=== PATIENT | male | born 1970 | race African-American/Black ===

== ENCOUNTER 2016-02-23 18:24 | Inpatient (IN) | payer OTHER ==
[2016-02-23] VITALS (10 sets, daily range): BP systolic 138–198; BP diastolic 73–110
[~2016-02-23] VITALS: Ht 175.2 cm; Wt 102.3 kg
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
--- NOTE | ~2016-02-23 | ST ---
[place], [place] EXERCISE STRESS TEST REPORT NAME: [facility]ES [id number] UNIT #: [id number] ROOM: 512 DOCTOR: AZEEM CLINTON MD BIRTHDATE: [birth year] DOS: 02/24/2016 EXERCISE MYOCARDIAL PERFUSION STRESS TEST REASON FOR TEST: Referred for evaluation of atypical chest pain and hypertension. PROCEDURE: The patient walked 8 minutes 35 seconds on a full Latrell protocol and achieved a maximum heart rate of 151 which represented 86% of his maximum predicted heart rate at a workload of 12.5 mets. He stopped for dyspnea and fatigue. He did not have any burning chest discomfort. His resting electrocardiogram showed left ventricular hypertrophy. No further changes occurred with exercise. One minute prior to completion of exercise protocol, the patient was given radionuclide intravenously. The patient's resting blood pressure 146/100, mikhail to 192/100. IMPRESSION: 1. Good exercise capacity without chest pain or diagnostic electrocardiographic changes. 2. Hypertensive blood pressure response to exercise. 3. Radionuclide injected. Please see the separate imaging report for further details of the patient's stress test results. AZEEM CLINTON MD CM:STRESS:EXERCISE STRESS TEST REPORT [id number] AZEEM CLINTON MD
[~2016-02-23 18:24] MED LIST: 'PARAFON FORTE500 M1 PO; ASPIR-LOW81 MG PO; ASPIRIN81 M1 PO; AUGMENTIN 875 M1 TAB PO; CIPRO500 MG PO; CORTISPORIN 1%7.5 M1 OP; DAYPRO600 M1 PO; FLEXERIL10 MG PO; HYDROCODONE BIT1 T11 PO; IBU800 M1 PO; LABETALOL HCL100 MG PO; LABETALOL100 MG PO; LEVEMIR10 ML SC; LISINOPRIL10 MG PO; METFORMIN HCL500 MG PO; METFORMIN500 MG PO; MOBIC7.5 MG PO; MOTRIN800 MG PO; NAPROSYN500 MG PO; NEURONTIN300 MG PO; PEN-VEE K500 MG PO; PRAVACHOL40 MG PO; TRAMADOL HCL50 MG PO; VICODIN ES 7501 TAB PO; VOLTAREN50 M1 PO; ZESTRIL,PRINIVI20 MG PO
[2016-02-23] MEDS ORDERED: LOPRESSOR25 MG PO (19:07)
[2016-02-23 19:58] LABS: BASO % 0.5 % (0.0-1.0); EOS % 0.3 % (1.0-4.0); HEMATOCRIT 41.6 % (42.0-52.0); HEMOGLOBIN 13.8 g/dl (14.0-18.0); LYMPH # 3.2 10*3/uL (1.3-4.4); LYMPH % 41.3 % (27.0-41.0); MEAN CORPUSCULAR HGB 30.2 pg (27.0-31.0); MEAN CORPUSCULAR HGB CONC 33.2 g/dl (33.0-37.0); MEAN PLATELET VOLUME 10.3 fl (9.6-12.3); MONO # 0.5 10*3/uL (0.1-1.0); MONO % 6.4 % (3.0-9.0); NEUT # 3.9 10*3/uL (2.3-7.9); NEUT % 51.2 % (47.0-73.0); PLATELET COUNT AUTOMATED 311 10*3/uL (130-400); RED BLOOD COUNT 4.57 10*6/uL (4.50-5.90); RED CELL DISTRI WIDTH 12.1 % (0-14.5); WHITE BLOOD COUNT 7.6 10*3/uL (4.8-10.8)
[2016-02-23 20:12] LABS: INTERNATIONAL NORM RATIO 0.9 (2.0-3.5)
[2016-02-23 20:14] LABS: ALBUMIN 3.9 gm/dl (3.1-4.5); ALKALINE PHOSPHATASE 71 U/L (45-117); BILIRUBIN, TOTAL 0.5 mg/dl (0.2-1.0); BUN 14 mg/dl (7-24); C-REACTIVE PROTEIN 0.42 MG/DL (0-0.3); CARBON DIOXIDE 27 mmol/L (21-32); CHLORIDE 98 mmol/L (98-107); CKMB 0.9 ng/ml (0.5-3.6); EST GLOM FILT AFRICAN AMERICAN > 60 ml/min; GLUCOSE 331 mg/dL (65-99); MAGNESIUM 2.1 mg/dL (1.5-2.1); POTASSIUM 4.1 mmol/L (3.5-5.1); SGOT/AST 8 IU/L (3-35); SGPT/ALT 27 U/L (12-78); SODIUM 134 mmol/L (136-145); TOTAL PROTEIN 8.2 gm/dL (6.4-8.2)
[2016-02-24] VITALS: BP 148/88
[2016-02-24 00:51] LABS: CKMB 1.1 ng/ml (0.5-3.6)
[2016-02-24 04:00] VITALS: BP 154/82
[2016-02-24 06:40] LABS: CKMB 0.8 ng/ml (0.5-3.6)
[2016-02-24 06:43] LABS: BASO # 0.1 10*3/uL (0.0-0.1); BASO % 0.9 % (0.0-1.0); EOS # 0.1 10*3/uL (0.0-0.4); EOS % 1.1 % (1.0-4.0); HEMATOCRIT 39.7 % (42.0-52.0); HEMOGLOBIN 13.1 g/dl (14.0-18.0); LYMPH # 2.8 10*3/uL (1.3-4.4); LYMPH % 51.5 % (27.0-41.0); MEAN CELL VOLUME 92.3 fl (80.0-94.0); MEAN CORPUSCULAR HGB 30.5 pg (27.0-31.0); MEAN PLATELET VOLUME 10.5 fl (9.6-12.3); MONO # 0.4 10*3/uL (0.1-1.0); MONO % 8.1 % (3.0-9.0); NEUT # 2.1 10*3/uL (2.3-7.9); NEUT % 38.2 % (47.0-73.0); PLATELET COUNT AUTOMATED 259 10*3/uL (130-400); RED CELL DISTRI WIDTH 12.2 % (0-14.5); WHITE BLOOD COUNT 5.4 10*3/uL (4.8-10.8)
[2016-02-24 07:01] LABS: HEMOGLOBIN A1c 10.5 % (4.8-5.6)
[2016-02-24 07:08] LABS: ALBUMIN 3.1 gm/dl (3.1-4.5); ALKALINE PHOSPHATASE 57 U/L (45-117); BILIRUBIN, TOTAL 0.5 mg/dl (0.2-1.0); BUN 13 mg/dl (7-24); CARBON DIOXIDE 28 mmol/L (21-32); CHLORIDE 100 mmol/L (98-107); EST GLOM FILT AFRICAN AMERICAN > 60 ml/min; GLUCOSE 129 mg/dL (65-99); POTASSIUM 3.4 mmol/L (3.5-5.1); SGOT/AST 10 IU/L (3-35); SGPT/ALT 23 U/L (12-78); SODIUM 139 mmol/L (136-145); TOTAL PROTEIN 6.8 gm/dL (6.4-8.2)
[2016-02-24 07:14] LABS: FREE T4 0.93 ng/dl (0.76-1.46); MAGNESIUM 2.3 mg/dL (1.5-2.1); THYROID STIM HORMONE (HS) 1.75 uIU/ml (0.358-4.75)
[2016-02-24 08:00] VITALS: BP 150/88
[2016-02-24 11:17] LABS: URINE AMPHETAMINES < 1000 (1000ng/ml); URINE BARBITURATES < 200 (200ng/ml); URINE COCAINE < 300 (300ng/ml)
[2016-02-24 12:00] VITALS: BP 156/86
[2016-02-24 12:36] LABS: CKMB 1.2 ng/ml (0.5-3.6)
[2016-02-24 16:00] VITALS: BP 157/90
[2016-02-24 20:00] VITALS: BP 165/90
[2016-02-25] VITALS: BP 140/94
[2016-02-25 02:35] VITALS: BP 150/102
[2016-02-25 02:49] LABS: BASO % 0.4 % (0.0-1.0); EOS % 0.4 % (1.0-4.0); HEMATOCRIT 40.3 % (42.0-52.0); HEMOGLOBIN 13.3 g/dl (14.0-18.0); LYMPH # 3.5 10*3/uL (1.3-4.4); LYMPH % 46.3 % (27.0-41.0); MEAN CELL VOLUME 92.6 fl (80.0-94.0); MEAN CORPUSCULAR HGB 30.6 pg (27.0-31.0); MEAN PLATELET VOLUME 9.9 fl (9.6-12.3); MONO # 0.5 10*3/uL (0.1-1.0); MONO % 7.1 % (3.0-9.0); NEUT # 3.5 10*3/uL (2.3-7.9); NEUT % 45.5 % (47.0-73.0); PLATELET COUNT AUTOMATED 276 10*3/uL (130-400); RED BLOOD COUNT 4.35 10*6/uL (4.50-5.90); RED CELL DISTRI WIDTH 12.2 % (0-14.5); WHITE BLOOD COUNT 7.6 10*3/uL (4.8-10.8)
[2016-02-25 03:02] LABS: BUN 13 mg/dl (7-24); CARBON DIOXIDE 28 mmol/L (21-32); CHLORIDE 101 mmol/L (98-107); EST GLOM FILT AFRICAN AMERICAN > 60 ml/min; GLUCOSE 232 mg/dL (65-99); SODIUM 138 mmol/L (136-145)
[2016-02-25 04:00] VITALS: BP 144/92
[2016-02-25 08:00] VITALS: BP 120/60
[2016-02-25 12:00] VITALS: BP 146/100
[2016-02-25] MEDS ORDERED: HUMALOG100 U/ML SC (13:57)
[2016-02-25] MEDS ORDERED: INSULIN SYRING1 EAC1 MC (13:57)
[2016-02-25] MEDS ORDERED: LOSARTAN POTASS50 M1 PO (13:57)
[2016-02-25] MEDS ORDERED: TEST STRIPS1 EACH MC (13:57)
[2016-02-25] MEDS ORDERED: PRAVASTATIN SOD40 MG PO (13:57)
[2016-02-25] MEDS ORDERED: [UNRECOGNIZED DRUG - SUPPLY] DEVI (13:57)
[2016-02-25 15:07] LABS: FOLIC ACID 21.08 ng/mL (>5.38)
[2016-02-25] MEDS ORDERED: COZAAR100 MG PO (15:46)
[2016-02-25 16:00] VITALS: BP 159/87
== END 2016-02-25 18:18 | disposition home or self-care (01) | DRG 305 ==
LOC: ED 18:24 → EDHOLD 20:39 → 5E 20:39
PROVIDERS: Emergency Medicine; Hospitalist; Internal Medicine; Internal Medicine Cardiovascular Disease
DX: I16.0 Hypertensive urgency (principal); E44.0 Moderate protein-calorie malnutrition; F17.200 Nicotine dependence, unspecified, uncomplicated; F12.10 Cannabis abuse, uncomplicated; F10.10 Alcohol abuse, uncomplicated; E10.65 Type 1 diabetes mellitus with hyperglycemia; E78.5 Hyperlipidemia, unspecified; I25.10 Atherosclerotic heart disease of native coronary artery without angina pectoris; Z68.33 Body mass index [BMI] 33.0-33.9, adult; Z83.3 Family history of diabetes mellitus; Z80.9 Family history of malignant neoplasm, unspecified; Z79.899 Other long term (current) drug therapy; Z87.828 Personal history of other (healed) physical injury and trauma; Z71.6 Tobacco abuse counseling; Z98.890 Other specified postprocedural states; Z91.14 Patient's other noncompliance with medication regimen

== ENCOUNTER → 2016-06-04 | Outpatient (CLI) | payer OTHER ==
[~2016-06-04] MED LIST changes: +COZAAR100 MG PO; +HUMALOG100 U/ML SC; +INSULIN SYRING1 EAC1 MC; +LOPRESSOR25 MG PO; +LOSARTAN POTASS50 M1 PO; +PRAVASTATIN SOD40 MG PO; +TEST STRIPS1 EACH MC; +[UNRECOGNIZED DRUG - SUPPLY] DEVI
[2016-06-04 11:09] LABS: HEMOGLOBIN A1c 9.6 % (4.8-5.6)
== END | disposition home or self-care (01) ==
LOC: LAB 10:34
PROVIDERS: Family Medicine
DX: E11.65 Type 2 diabetes mellitus with hyperglycemia (principal)

== ENCOUNTER 2016-06-07 14:28 | Emergency (ER) | payer OTHER ==
[~2016-06-07] VITALS: Wt 106.6 kg
[2016-06-07 14:35] VITALS: BP 162/92
[2016-06-08] MEDS ORDERED: NAPROSYN500 MG PO (19:48)
== END 2016-06-07 16:11 | disposition home or self-care (01) ==
LOC: ED 14:28
DX: M25.461 Effusion, right knee (principal); F17.200 Nicotine dependence, unspecified, uncomplicated; Z98.890 Other specified postprocedural states; Z79.899 Other long term (current) drug therapy

== ENCOUNTER → 2016-06-07 | Outpatient (CLI) | payer OTHER | END | disposition home or self-care (01) | LOC: RESCLI | DX: E11.65 Type 2 diabetes mellitus with hyperglycemia (principal); I10 Essential (primary) hypertension; M25.561 Pain in right knee; Z79.4 Long term (current) use of insulin; I25.10 Atherosclerotic heart disease of native coronary artery without angina pectoris ==

== ENCOUNTER 2016-06-08 19:07 | Emergency (ER) | payer OTHER ==
[~2016-06-08] VITALS: Ht 170.1 cm; Wt 106.6 kg
[2016-06-08 19:21] VITALS: BP 169/103
[2016-06-08] MEDS ORDERED: NAPROSYN500 MG PO (19:48)
== END 2016-06-08 20:12 | disposition home or self-care (01) ==
LOC: ED 19:07
DX: M25.561 Pain in right knee (principal); F12.10 Cannabis abuse, uncomplicated; Z79.4 Long term (current) use of insulin

== ENCOUNTER 2017-06-29 17:00 | Emergency (ER) | payer OTHER ==
[~2017-06-29] VITALS: Ht 170.1 cm; Wt 99.8 kg
[2017-06-29] MEDS ORDERED: NORCO 5-325 TA1 EACH PO (19:30)
[2017-06-29 20:34] VITALS: BP 169/89
== END 2017-06-29 21:15 | disposition home or self-care (01) ==
LOC: ED 17:00
DX: S52.571A Other intraarticular fracture of lower end of right radius, initial encounter for closed fracture (principal); S30.0XXA Contusion of lower back and pelvis, initial encounter; S90.01XA Contusion of right ankle, initial encounter; F12.10 Cannabis abuse, uncomplicated; Z79.4 Long term (current) use of insulin; Z79.899 Other long term (current) drug therapy; W13.2XXA Fall from, out of or through roof, initial encounter; Y93.89 Activity, other specified; Y92.89 Other specified places as the place of occurrence of the external cause; Y99.9 Unspecified external cause status

== ENCOUNTER 2017-07-25 15:44 | Emergency (ER) | payer OTHER ==
[~2017-07-25] VITALS: Ht 172.7 cm; Wt 94.8 kg
[~2017-07-25 15:44] MED LIST changes: +NORCO 5-325 TA1 EACH PO
[2017-07-25 16:22] LABS: BASO % 0.6 % (0.0-1.0); EOS # 0.1 10*3/uL (0.0-0.4); EOS % 0.8 % (1.0-4.0); HEMATOCRIT 36.9 % (42.0-52.0); HEMOGLOBIN 12.3 g/dl (14.0-18.0); LYMPH # 1.8 10*3/uL (1.3-4.4); LYMPH % 25.3 % (27.0-41.0); MEAN CELL VOLUME 90.2 fl (80.0-94.0); MEAN CORPUSCULAR HGB 30.1 pg (27.0-31.0); MEAN CORPUSCULAR HGB CONC 33.3 g/dl (33.0-37.0); MEAN PLATELET VOLUME 9.8 fl (9.6-12.3); MONO # 0.5 10*3/uL (0.1-1.0); MONO % 6.6 % (3.0-9.0); NEUT # 4.7 10*3/uL (2.3-7.9); NEUT % 66.1 % (47.0-73.0); PLATELET COUNT AUTOMATED 294 10*3/uL (130-400); RED BLOOD COUNT 4.09 10*6/uL (4.50-5.90); RED CELL DISTRI WIDTH 11.7 % (0-14.5); WHITE BLOOD COUNT 7.2 10*3/uL (4.8-10.8)
[2017-07-25 16:36] LABS: ACT PARTIAL THROMBO TIME 19.6 SECONDS (20.8-31.5)
[2017-07-25 16:39] LABS: ALBUMIN 3.6 gm/dl (3.1-4.5); ALKALINE PHOSPHATASE 92 U/L (45-117); BUN 12 mg/dl (7-24); CHLORIDE 101 mmol/L (98-107); CREATININE 0.97 mg/dL (0.70-1.30); POTASSIUM 4.2 mmol/L (3.5-5.1); SGOT/AST 11 IU/L (3-35); SGPT/ALT 26 U/L (12-78); SODIUM 139 mmol/L (136-145); TOTAL PROTEIN 7.8 gm/dL (6.4-8.2)
[2017-07-25 16:45] LABS: TROPONIN I < 0.015 ng/ml (<0.045)
[2017-07-25] MEDS ORDERED: METFORMIN850 MG PO (16:49)
[2017-07-25] MEDS ORDERED: METHOCARBAMOL500 M1 PO (16:51)
[2017-07-25] MEDS ORDERED: LIPITOR40 MG PO (16:51)
[2017-07-25] MEDS ORDERED: NEURONTIN300 MG PO (16:51)
[2017-07-25] MEDS ORDERED: LISINOPRIL40 MG PO (16:52)
[2017-07-25] MEDS ORDERED: HYDROCHLOROTH12.5 M2 PO (16:53)
[2017-07-25] MEDS ORDERED: ZOFRAN4 MG PO (16:54)
[2017-07-25] MEDS ORDERED: ASPIRIN ADULT L81 M1 PO (16:55)
[2017-07-25] MEDS ORDERED: LABETALOL HCL100 MG PO (16:55)
[2017-07-25] MEDS ORDERED: BASAG SOL SQ (16:56)
[2017-07-25] MEDS ORDERED: [UNRECOGNIZED DRUG - OTHER] PO (16:57)
[2017-07-25 17:29] VITALS: BP 117/78
== END 2017-07-25 18:06 | disposition home or self-care (01) ==
LOC: ED 15:44
PROVIDERS: Emergency Medicine
DX: R55 Syncope and collapse (principal); M25.531 Pain in right wrist; R10.84 Generalized abdominal pain; F17.200 Nicotine dependence, unspecified, uncomplicated; E11.9 Type 2 diabetes mellitus without complications; I10 Essential (primary) hypertension; F12.10 Cannabis abuse, uncomplicated; Z79.899 Other long term (current) drug therapy; Z79.82 Long term (current) use of aspirin

== ENCOUNTER 2017-08-17 11:53 | Inpatient (IN) | payer OTHER ==
[~2017-08-17] VITALS: Ht 172.7 cm; Wt 95.4 kg
[2017-08-17] VITALS (7 sets, daily range): BP systolic 144–166; BP diastolic 88–109
[~2017-08-17 11:53] MED LIST changes: +ASPIRIN ADULT L81 M1 PO; +BASAG SOL SQ; +HYDROCHLOROTH12.5 M2 PO; +LIPITOR40 MG PO; +LISINOPRIL40 MG PO; +METFORMIN850 MG PO; +METHOCARBAMOL500 M1 PO; +ZOFRAN4 MG PO; +[UNRECOGNIZED DRUG - OTHER] PO
[2017-08-17 12:47] LABS: BASO % 0.6 % (0.0-1.0); EOS % 0.5 % (1.0-4.0); HEMATOCRIT 39.7 % (42.0-52.0); HEMOGLOBIN 13.4 g/dl (14.0-18.0); LYMPH # 2.6 10*3/uL (1.3-4.4); LYMPH % 41.2 % (27.0-41.0); MEAN CORPUSCULAR HGB CONC 33.8 g/dl (33.0-37.0); MONO # 0.5 10*3/uL (0.1-1.0); MONO % 7.5 % (3.0-9.0); NEUT # 3.1 10*3/uL (2.3-7.9); PLATELET COUNT AUTOMATED 300 10*3/uL (130-400); RED BLOOD COUNT 4.46 10*6/uL (4.50-5.90); RED CELL DISTRI WIDTH 11.9 % (0-14.5); WHITE BLOOD COUNT 6.3 10*3/uL (4.8-10.8)
[2017-08-17 12:57] LABS: ACT PARTIAL THROMBO TIME 22.3 SECONDS (20.8-31.5)
[2017-08-17 13:04] LABS: ALBUMIN 4.1 gm/dl (3.1-4.5); ALKALINE PHOSPHATASE 83 U/L (45-117); BUN 14 mg/dl (7-24); CHLORIDE 96 mmol/L (98-107); CREATININE 1.03 mg/dL (0.70-1.30); POTASSIUM 3.9 mmol/L (3.5-5.1); SGOT/AST 10 IU/L (3-35); SGPT/ALT 19 U/L (12-78); SODIUM 132 mmol/L (136-145); TOTAL PROTEIN 8.4 gm/dL (6.4-8.2)
[2017-08-17 13:07] LABS: TROPONIN I < 0.015 ng/ml (<0.045)
[2017-08-17 23:06] LABS: BILIRUBIN NEGATIVE (NEGATIVE); BLOOD 1+ (NEGATIVE); CLARITY CLEAR (CLEAR); COLOR YELLOW (YELLOW); GLUCOSE NEGATIVE (NEGATIVE); KETONE NEGATIVE (NEGATIVE); LEUKO ESTERASE NEGATIVE (NEGATIVE); NITRITE NEGATIVE (NEGATIVE); PH 5.5 (5.0-9.0); SPECIFIC GRAVITY <= 1.005 (1.005-1.030); UROBILINOGEN 0.2 E.U./dl (0.2-1.0)
[2017-08-17 23:13] LABS: WBC 0-2 wbc/hpf (0-5)
[2017-08-18 00:11] VITALS: BP 130/82
[2017-08-18 06:27] LABS: BASO % 0.6 % (0.0-1.0); EOS # 0.1 10*3/uL (0.0-0.4); EOS % 0.7 % (1.0-4.0); HEMATOCRIT 37.4 % (42.0-52.0); HEMOGLOBIN 12.6 g/dl (14.0-18.0); LYMPH # 2.9 10*3/uL (1.3-4.4); LYMPH % 40.5 % (27.0-41.0); MEAN CELL VOLUME 89.9 fl (80.0-94.0); MEAN CORPUSCULAR HGB 30.3 pg (27.0-31.0); MEAN CORPUSCULAR HGB CONC 33.7 g/dl (33.0-37.0); MEAN PLATELET VOLUME 9.3 fl (9.6-12.3); MONO # 0.5 10*3/uL (0.1-1.0); MONO % 7.4 % (3.0-9.0); NEUT # 3.7 10*3/uL (2.3-7.9); NEUT % 50.5 % (47.0-73.0); PLATELET COUNT AUTOMATED 284 10*3/uL (130-400); RED BLOOD COUNT 4.16 10*6/uL (4.50-5.90); RED CELL DISTRI WIDTH 11.9 % (0-14.5); WHITE BLOOD COUNT 7.2 10*3/uL (4.8-10.8)
[2017-08-18 07:01] LABS: ALBUMIN 3.9 gm/dl (3.1-4.5); ALKALINE PHOSPHATASE 77 U/L (45-117); BUN 13 mg/dl (7-24); CHLORIDE 99 mmol/L (98-107); CREATININE 1.08 mg/dL (0.70-1.30); FREE T4 0.93 ng/dl (0.76-1.46); PHOSPHOROUS 3.7 mg/dL (2.5-4.9); SGOT/AST 8 IU/L (3-35); SGPT/ALT 22 U/L (12-78); SODIUM 138 mmol/L (136-145); TOTAL PROTEIN 8.1 gm/dL (6.4-8.2)
[2017-08-18 08:00] VITALS: BP 142/94
[2017-08-18 12:00] VITALS: BP 139/87
[2017-08-18] MEDS ORDERED: NITROSTAT0.4 MG SL (12:30)
== END 2017-08-18 13:06 | disposition home or self-care (01) | DRG 392 ==
LOC: ED 11:53 → EDHOLD 13:38 → 4E 13:38
PROVIDERS: Emergency Medicine; Internal Medicine
DX: R10.13 Epigastric pain (principal); E11.65 Type 2 diabetes mellitus with hyperglycemia; E87.8 Other disorders of electrolyte and fluid balance, not elsewhere classified; E87.1 Hypo-osmolality and hyponatremia; D64.9 Anemia, unspecified; E55.9 Vitamin D deficiency, unspecified; E78.5 Hyperlipidemia, unspecified; E66.9 Obesity, unspecified; E78.00 Pure hypercholesterolemia, unspecified; R31.29 Other microscopic hematuria; F12.10 Cannabis abuse, uncomplicated; I10 Essential (primary) hypertension; Z79.4 Long term (current) use of insulin; Z72.0 Tobacco use; Z79.82 Long term (current) use of aspirin; Z79.84 Long term (current) use of oral hypoglycemic drugs; Z79.899 Other long term (current) drug therapy; Z83.3 Family history of diabetes mellitus; Z80.9 Family history of malignant neoplasm, unspecified; Z87.81 Personal history of (healed) traumatic fracture; Z68.31 Body mass index [BMI] 31.0-31.9, adult

== ENCOUNTER 2018-04-19 14:56 | Emergency (ER) | payer OTHER ==
[~2018-04-19] VITALS: Wt 108.9 kg
[~2018-04-19 14:56] MED LIST changes: +KEFLEX500 M1 PO; +NITROSTAT0.4 MG SL
[2018-04-19 15:34] VITALS: BP 178/104
[2018-04-19] MEDS ORDERED: MEDROL DOSEPAK4 MG PO (17:21)
[2018-04-19] MEDS ORDERED: NAPROSYN500 MG PO (17:21)
[2018-04-19] MEDS ORDERED: ROBAXIN500 M1 PO (17:21)
[2018-05-29] MEDS ORDERED: NORVASC2.5 MG PO (10:02)
[2018-05-30] MEDS ORDERED: AMLODIPINE BESY10 MG PO (12:05)
[2018-05-30] MEDS ORDERED: TEST STRIPS1 EACH MC (12:05)
[2018-05-30] MEDS ORDERED: ACCU-CHEK FAST1 EACH MC (12:05)
[2018-05-30] MEDS ORDERED: Humalog SQ (12:05)
[2018-05-30] MEDS ORDERED: PEN NEEDLE1 EAC5 MC (12:05)
[2018-05-30] MEDS ORDERED: LABETALOL HCL200 MG PO (12:05)
== END 2018-04-19 17:41 | disposition home or self-care (01) ==
LOC: ED 14:56
DX: S39.012A Strain of muscle, fascia and tendon of lower back, initial encounter (principal); S30.0XXA Contusion of lower back and pelvis, initial encounter; F17.200 Nicotine dependence, unspecified, uncomplicated; Z79.899 Other long term (current) drug therapy; Z79.2 Long term (current) use of antibiotics; Z79.82 Long term (current) use of aspirin; Z79.4 Long term (current) use of insulin; W10.9XXA Fall (on) (from) unspecified stairs and steps, initial encounter; Y93.89 Activity, other specified; Y92.89 Other specified places as the place of occurrence of the external cause; Y99.8 Other external cause status

== ENCOUNTER 2018-05-22 17:24 | Emergency (ER) | payer OTHER ==
[~2018-05-22] VITALS: Ht 170.1 cm; Wt 95.3 kg
--- NOTE | ~2018-05-22 | EKG ---
[place], [place] ELECTROCARDIOGRAM REPORT NAME: SAUNDRA GONZALES UNIT #: [id number] ROOM: DOCTOR: EPIPHANY DRAFT REPORT BIRTHDATE: [birth year] [facility] Test Date: 2018-05-22 Test Time: 17:56:47 Pat Name: SAUNDRA GONZALES Department: Room: Gender: Senior Net C Developer: Ysabel Briceno : 1970 Requested By: DENNIS GUADARRAMA Order Number: [id number] Reading MD: Simi Sethi MD Measurements Intervals [place] Rate: 90 P: 49 MA: 147 QRS: 31 QRSD: 82 T: 0 QT: 352 QTc: 431 Interpretive Statements Sinus rhythm Consider left ventricular hypertrophy ST elev, probable normal early repol pattern Baseline wander in lead(s) V5 Electronically Signed On 05-26-2018 13:18:16 PDT by Simi Sethi MD CM:EKGRPT:ELECTROCARDIOGRAM REPORT [id number] DENNIS OLVERA DRAFT REPORT DENNIS GUADARRAMA MD
[~2018-05-22 17:24] MED LIST changes: +MEDROL DOSEPAK4 MG PO; +ROBAXIN500 M1 PO
[2018-05-22 18:19] LABS: BASO % 0.5 % (0.0-1.0); EOS % 0.5 % (1.0-4.0); HEMATOCRIT 34.2 % (42.0-52.0); HEMOGLOBIN 11.6 g/dl (14.0-18.0); LYMPH # 2.6 10*3/uL (1.3-4.4); LYMPH % 33.2 % (27.0-41.0); MEAN CELL VOLUME 91.2 fl (80.0-94.0); MEAN CORPUSCULAR HGB 30.9 pg (27.0-31.0); MEAN CORPUSCULAR HGB CONC 33.9 g/dl (33.0-37.0); MEAN PLATELET VOLUME 10.1 fl (9.6-12.3); MONO # 0.5 10*3/uL (0.1-1.0); MONO % 6.1 % (3.0-9.0); NEUT # 4.6 10*3/uL (2.3-7.9); NEUT % 59.4 % (47.0-73.0); PLATELET COUNT AUTOMATED 245 10*3/uL (130-400); RED BLOOD COUNT 3.75 10*6/uL (4.50-5.90); RED CELL DISTRI WIDTH 11.7 % (0-14.5); WHITE BLOOD COUNT 7.7 10*3/uL (4.8-10.8)
[2018-05-22 18:34] VITALS: BP 150/94
[2018-05-22 18:59] LABS: ALBUMIN 3.3 gm/dl (3.1-4.5); ALKALINE PHOSPHATASE 74 U/L (45-117); BUN 14 mg/dl (7-24); CHLORIDE 102 mmol/L (98-107); CREATININE 1.18 mg/dL (0.70-1.30); POTASSIUM 4.4 mmol/L (3.5-5.1); SGOT/AST 15 IU/L (3-35); SGPT/ALT 26 U/L (12-78); SODIUM 137 mmol/L (136-145); TOTAL PROTEIN 7.1 gm/dL (6.4-8.2)
[2018-05-22 19:01] LABS: ETHYL ALCOHOL < 3.0 mg/dl (<3); TROPONIN I < 0.015 ng/ml (<0.045)
[2018-05-22] MEDS ORDERED: NAPROSYN500 MG PO (19:15)
[2018-05-22] MEDS ORDERED: CYCLOBENZAPRINE10 MG PO (19:15)
[2018-05-22 19:24] LABS: ACT PARTIAL THROMBO TIME 21.4 SECONDS (20.8-31.5); INTERNATIONAL NORM RATIO 0.9 (2.0-3.5)
[2018-05-29] MEDS ORDERED: NORVASC2.5 MG PO (10:02)
[2018-05-30] MEDS ORDERED: ACCU-CHEK FAST1 EACH MC (12:05)
[2018-05-30] MEDS ORDERED: LABETALOL HCL200 MG PO (12:05)
[2018-05-30] MEDS ORDERED: AMLODIPINE BESY10 MG PO (12:05)
[2018-05-30] MEDS ORDERED: TEST STRIPS1 EACH MC (12:05)
[2018-05-30] MEDS ORDERED: Humalog SQ (12:05)
[2018-05-30] MEDS ORDERED: PEN NEEDLE1 EAC5 MC (12:05)
== END 2018-05-22 19:31 | disposition home or self-care (01) ==
LOC: ED 17:24
PROVIDERS: Emergency Medicine
DX: M25.511 Pain in right shoulder (principal); M54.6 Pain in thoracic spine; R20.0 Anesthesia of skin; F17.200 Nicotine dependence, unspecified, uncomplicated; E11.9 Type 2 diabetes mellitus without complications; E78.5 Hyperlipidemia, unspecified; I10 Essential (primary) hypertension; F12.90 Cannabis use, unspecified, uncomplicated; E66.9 Obesity, unspecified; Z68.34 Body mass index [BMI] 34.0-34.9, adult; Z79.82 Long term (current) use of aspirin; Z79.899 Other long term (current) drug therapy; Z79.4 Long term (current) use of insulin

== ENCOUNTER 2018-08-11 14:40 | Inpatient (IN) | payer OTHER ==
[~2018-08-11] VITALS: Ht 172.7 cm
[2018-08-11] VITALS (7 sets, daily range): BP systolic 150–180; BP diastolic 85–122
--- NOTE | ~2018-08-11 | EKG ---
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
--- NOTE | ~2018-08-11 | EKG ---
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 Specialist: JAKE : 1970 Requested By: DENNIS GUADARRAMA Order Number: [id number] Reading MD: Yahir Silva MD Measurements Intervals [place] Rate: 90 P: 54 MS: 148 QRS: 30 QRSD: 86 T: 29 QT: 362 QTc: 443 Interpretive Statements Sinus rhythm Probable left atrial enlargement ST elev, probable normal early repol pattern Compared to ECG 05/29/2018 05:11:08 Left ventricular hypertrophy no longer present T-wave abnormality no longer present ST (T wave) deviation still present Electronically Signed On 08-14-2018 8:11:28 PDT by Yahir Silva MD CM:EKGRPT:ELECTROCARDIOGRAM REPORT 02 0811 DENNIS OLVERA DRAFT REPORT DENNIS GUADARRAMA MD
--- NOTE | ~2018-08-11 | EKG ---
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: : 1970 Requested By: DENNIS GUADARRAMA Order Number: [id number] Reading MD: Yahir Silva MD Measurements Intervals [place] Rate: 79 P: 37 TN: 154 QRS: 32 QRSD: 85 T: 29 QT: 367 QTc: 421 Interpretive Statements Sinus rhythm Probable left atrial enlargement Probable left ventricular hypertrophy ST elevation suggests acute pericarditis Baseline wander in lead(s) II,III,aVF Compared to ECG 05/29/2018 05:11:08 T-wave abnormality no longer present ST (T wave) deviation still present Electronically Signed On 08-14-2018 8:10:21 PDT by Yahir Silva MD CM:EKGRPT:ELECTROCARDIOGRAM REPORT [id number] DENNIS OLVERA DRAFT REPORT DENNIS GUADARRAMA MD
[~2018-08-11 14:40] MED LIST changes: +ACCU-CHEK FAST1 EACH MC; +AMLODIPINE BESY10 MG PO; +CYCLOBENZAPRINE10 MG PO; +Humalog SQ; +LABETALOL HCL200 MG PO; +NORVASC2.5 MG PO; +PEN NEEDLE1 EAC5 MC
[2018-08-11 15:12] LABS: BASO % 0.2 % (0.0-1.0); EOS % 0.5 % (1.0-4.0); HEMATOCRIT 36.1 % (42.0-52.0); HEMOGLOBIN 12.2 g/dl (14.0-18.0); LYMPH # 1.6 10*3/uL (1.3-4.4); LYMPH % 27.3 % (27.0-41.0); MEAN CELL VOLUME 92.3 fl (80.0-94.0); MEAN CORPUSCULAR HGB 31.2 pg (27.0-31.0); MEAN CORPUSCULAR HGB CONC 33.8 g/dl (33.0-37.0); MEAN PLATELET VOLUME 9.5 fl (9.6-12.3); MONO # 0.4 10*3/uL (0.1-1.0); MONO % 6.6 % (3.0-9.0); NEUT # 3.9 10*3/uL (2.3-7.9); NEUT % 65.2 % (47.0-73.0); PLATELET COUNT AUTOMATED 276 10*3/uL (130-400); RED BLOOD COUNT 3.91 10*6/uL (4.50-5.90); RED CELL DISTRI WIDTH 12.3 % (0-14.5); WHITE BLOOD COUNT 5.9 10*3/uL (4.8-10.8)
--- NOTE | 2018-08-11 15:15 | NUR ---
[facility] [employer] REMOVED CUFFS FROM PATIENT AND STATES THEY TALKED WITH [facility] AND [facility] WANTS CALLED WHEN PT IS DISCHARGED. PT COOPERATIVE AT THIS TIME.
[2018-08-11 15:27] LABS: ACT PARTIAL THROMBO TIME 26.5 SECONDS (20.0-32.1)
[2018-08-11 15:40] LABS: ALBUMIN 3.5 gm/dl (3.1-4.5); ALKALINE PHOSPHATASE 70 U/L (45-117); BUN 13 mg/dl (7-24); CHLORIDE 104 mmol/L (98-107); CREATININE 1.07 mg/dL (0.70-1.30); POTASSIUM 3.8 mmol/L (3.5-5.1); SGOT/AST 24 IU/L (3-35); SGPT/ALT 37 U/L (12-78); SODIUM 139 mmol/L (136-145); TOTAL PROTEIN 7.4 gm/dL (6.4-8.2)
[2018-08-11 15:49] LABS: TROPONIN I < 0.015 ng/ml (<0.045)
[2018-08-11 17:44] LABS: URINE AMPHETAMINES < 1000 (1000ng/ml); URINE BARBITURATES < 200 (200ng/ml); URINE BENZODIAZEPINES < 200 (200ng/ml); URINE CANNABINOIDS (THC) > 50 (50ng/ml); URINE COCAINE < 300 (300ng/ml); URINE METHADONE < 300 (300ng/ml); URINE OPIATES < 300 (300ng/ml); URINE PHENCYCLIDINE < 25 (25ng/ml)
[2018-08-11] MEDS ORDERED: NEURONTIN300 MG PO (18:50)
--- NOTE | 2018-08-11 18:50 | NUR ---
A 47, admitted to 5E, under the services of JOSE MANUEL Tran DO with a diagnosis of CHEST PAIN. Chief complaint is CHEST PAIN. Patient arrived via ambulance from ER. Monitor applied. Initial assessment completed. Vital signs taken and recorded. JOSE MANUEL TRAN DO notified of admission to the unit. Orders received. See assessment for past medical history, medications and allergies. Patient and/or family oriented to unit. [facility] visitation policy reviewed. Clothing/patient valuable form completed. ALBERTO WINSTON
[2018-08-11] MEDS ORDERED: BASAG SOL SC (18:51)
--- NOTE | 2018-08-11 18:55 | NUR ---
NOTIFIED AYO ENCISO OF PT'S BP. NO NO ORDERS GIVEN AT THIS TIME.
--- NOTE | 2018-08-11 19:21 | NUR ---
DR WILBURN NOTIFIED OF UPDATED MED REC.
--- NOTE | 2018-08-11 19:43 | NUR ---
PATIENT MEDICATED WITH SLOWLY WITH HYDRALAZINE 5 MG IV PER PRN ORDER FOR BP OF 180/122. SEE EMAR. REINFORCED USE OF CALL LIGHT.
--- NOTE | 2018-08-11 20:00 | NUR ---
BLOOD PRESSURE RECHECK 172/85. DR WILBURN NOTIFIED.
--- NOTE | 2018-08-11 20:50 | NUR ---
PATIENT C/O CHEST DISCOMFORT. MEDICATED WITH TYLENOL FOR C/O CHEST PAIN. SEE EMAR. RATED PAIN A 8/10 WITH 10 BEING THE WORST.
--- NOTE | 2018-08-11 23:21 | NUR ---
DR. WILBURN NOTIFIED OF MANUAL BP OF 176/98.
--- NOTE | 2018-08-11 23:35 | NUR ---
PATIENT MEDICATED SLOWLY WITH HYDRALAZINE 5 MG IC PER PRN ORDER FOR BP OF 176/98 MANUAL. SEE EMAR. REINFORCED USE OF CALL LIGHT.
[2018-08-12] VITALS (7 sets, daily range): BP systolic 128–184; BP diastolic 72–100
--- NOTE | 2018-08-12 02:00 | NUR ---
RECHECK ON BP 128/72.
--- NOTE | 2018-08-12 03:27 | NUR ---
24 HR chart check completed.
[2018-08-12 06:14] LABS: BASO % 0.4 % (0.0-1.0); EOS % 0.4 % (1.0-4.0); HEMATOCRIT 37.8 % (42.0-52.0); HEMOGLOBIN 12.5 g/dl (14.0-18.0); LYMPH # 2.3 10*3/uL (1.3-4.4); LYMPH % 45.8 % (27.0-41.0); MEAN CELL VOLUME 93.8 fl (80.0-94.0); MEAN CORPUSCULAR HGB CONC 33.1 g/dl (33.0-37.0); MEAN PLATELET VOLUME 10.3 fl (9.6-12.3); MONO # 0.5 10*3/uL (0.1-1.0); MONO % 9.3 % (3.0-9.0); NEUT # 2.2 10*3/uL (2.3-7.9); NEUT % 43.9 % (47.0-73.0); PLATELET COUNT AUTOMATED 289 10*3/uL (130-400); RED BLOOD COUNT 4.03 10*6/uL (4.50-5.90); RED CELL DISTRI WIDTH 12.4 % (0-14.5)
[2018-08-12 06:32] LABS: ALBUMIN 3.4 gm/dl (3.1-4.5); ALKALINE PHOSPHATASE 65 U/L (45-117); BUN 14 mg/dl (7-24); CHLORIDE 103 mmol/L (98-107); CREATININE 0.98 mg/dL (0.70-1.30); HDL CHOLESTEROL 49 mg/dl (40-60); PHOSPHOROUS 3.7 mg/dL (2.5-4.9); POTASSIUM 3.3 mmol/L (3.5-5.1); SGOT/AST 24 IU/L (3-35); SGPT/ALT 34 U/L (12-78); SODIUM 137 mmol/L (136-145); TOTAL PROTEIN 6.8 gm/dL (6.4-8.2); TRIGLYCERIDES 129 mg/dl (<150); VLDL CHOLESTEROL 26 mg/dL (6-40)
--- NOTE | 2018-08-12 06:34 | NUR ---
PATIENT MEDICATED WITH TYLENOL PER PRN ORDER AND PATIENT REQUEST FOR C/O CHEST PAIN. DOES NOT WANT NITRO- STATED IT DOES NOT WORK ANYWAY. DR WILBURN NOTIFIED AND DID NOT WANT ANY FURTHER TESTING DONE.
[2018-08-12 06:42] LABS: CHOLESTEROL 125 mg/dL (<200); FREE T4 0.86 ng/dl (0.76-1.46); LDL CHOLESTEROL 50 mg/dL (9-159)
[2018-08-12 07:01] LABS: ACT PARTIAL THROMBO TIME 23.7 SECONDS (20.0-32.1)
[2018-08-12 07:38] LABS: VITAMIN D, 25-HYDROXY 20.3 ng/mL (30-100)
--- NOTE | 2018-08-12 07:46 | NUR ---
24 HR chart check completed.
--- NOTE | 2018-08-12 09:30 | NUR ---
ATTEMPTED TO REACH CARDIOLOGY FOR CONSULT. MEAAGE LEFT WITH ANSWERING SERVICE. AWAITING RETURN CALL
--- NOTE | 2018-08-12 09:35 | NUR ---
RELAXING IN BED WATCHING TV AND EATING BREAKFAST. UPON ENTERING ROOM, PATIENT IMMEDIATELY STATES "MY CHEST HURTS." HR 102, BP 184/96. PULSE OX 97% RA.
--- NOTE | 2018-08-12 09:40 | NUR ---
DR VILLA CONTACTED TO VERIFY [facility] ORDER; 25 MG ORDERED X 2 BY [address] VILLA, ONLY 1 DOSE IS NEEDED. ALSO UPDATED REGARDING MANUAL BP 184/96. PER REVIEW OF PATIENT HX, PATIENT WAS HERE MAY 2018 AND ORDERED LABETOLOL BUT DENIES TAKING AT PRESENT. PER DR VILLA, ENTER MED ON MED REC AND SHE WILL ORDER
[2018-08-12] MEDS ORDERED: LABETALOL HYDR200 MG PO (09:42)
--- NOTE | 2018-08-12 12:15 | NUR ---
DR VILLA CONTACTED AND INFORMED OF BP 154/100 AFTER RECEIVING LABETOLOL [address] Reagan PEREZ SAW PATIENT AND INCREASED LABETOLOL TO 300 MG BID AND STRESS TEST PLANNED FOR TUESDAY. PER DR VILLA, BP OK WE DO NOT WANT TO DROP PRESSURE TOO QUICKLY. CONTINUE TO MONITOR
--- NOTE | 2018-08-12 12:30 | NUR ---
AMBULATING HALLWAY. NO DISTRESS NOTED.
--- NOTE | 2018-08-12 15:30 | NUR ---
LAYING IN BED WATCHING TV WITH NO ACUTE DISTRESS NOTED. RESPIRATIONS EASY. CALL LIGHT WITHIN REACH. NO VOICED COMPLAINTS
[2018-08-12] MEDS ORDERED: NORVASC10 MG PO (15:31)
--- NOTE | 2018-08-12 17:10 | NUR ---
DR VILLA CONTACTED AND INFORMED BP 164/100. PATIENT WAS SLEEPING PRIOR TO BP. NO C/O CHEST PAIN
--- NOTE | 2018-08-12 18:00 | NUR ---
AMBULATING HALLWAY WITH NO DISTRESS NOTED. NO VOICED COMPLAINTS
[2018-08-13] VITALS: BP 154/93
--- NOTE | 2018-08-13 04:30 | NUR ---
24 HR chart check completed.
[2018-08-13 08:00] VITALS: BP 180/92
--- NOTE | 2018-08-13 08:07 | NUR ---
24 HR chart check completed.
--- NOTE | 2018-08-13 09:00 | NUR ---
SITTING IN RECLINER, NO DISTRESS NOTED. ERSPIRATIONS EASY. LUNGS DIMINISHED, CLEAR. PULSE OX 99% RA. DENIES CHEST PAIN. BP 180/92. TEDS PRESENT AT BEDSIDE, ENCOURAGED TO PLACE AFTER SHOWER. CALL LIGHT WITHIN REACH. NO VOICED COMPLAINTS
[2018-08-13 12:00] VITALS: BP 158/100
[2018-08-13 12:30] VITALS: BP 170/98
--- NOTE | 2018-08-13 12:30 | NUR ---
ATTEMPTED TO REACH DR VILLA REGARDING BP 170/[address] PRATER ANSWERED AND TO RELAY INFO
--- NOTE | 2018-08-13 12:57 | NUR ---
C/O LEFT LOWER BACK PAIN RATING AN 8. MEDICATED WITH TYLENOL PER PRN ORDER. CALL LIGHT WITHIN REACH. WILL MONITOR FOR EFFECTIVENESS
--- NOTE | 2018-08-13 15:00 | NUR ---
RESTING IN RECLINER WATCHING TV. STATES RELIEF FROM EARLIER TYLENOL. CALL LIGHT WITHIN REACH. NO FURTHER VOICED COMPLAINTS
[2018-08-13 16:00] VITALS: BP 148/96
--- NOTE | 2018-08-13 16:30 | NUR ---
RESTING IN BED. RESPIRATIONS EASY. BP 148/96. DENIES CHEST PAIN. CALL LIGHT WITHIN REACH. NO VOICED COMPLAINTS
--- NOTE | 2018-08-13 17:00 | NUR ---
AMBULATING HALLWAY. NO DISTRESS NOTED. NO VOICED COMPLAINTS
[2018-08-13 20:00] VITALS: BP 158/90
--- NOTE | 2018-08-13 20:00 | NUR ---
AAOX3. AMBULATING IN HALLS. PT. BACK IN ROOM FOR ASSESSMENT. LUNGS CLEAR WITH NO COUGH NOTED. PT. STATES THAT HE HAS HAD SEVERAL BM'S & WANTS SOMETHING TO HELP HIM STOP. PT. HAS NOT HAD A BM FOR SEVERAL DAYS. INFORMED PATIENT THAT HE MIGHT WANT TO WAIT TO SEE IF HE CONTINUE TO GO. PT. VERBALIZES UNDERSTANDING. WILL CONTINUE TO MONITOR. CALL LIGHT WITHIN REACH.
--- NOTE | 2018-08-13 23:00 | NUR ---
PT LAYING IN BED AT THIS TIME. PT STATES THAT HE IS HAVING DIFFICULTY SLEEPING, WOULD LIKE SLEEPING PILL BEFORE MIDNIGHT (NPO). PT DENIES CP AT THIS TIME, CALL LIGHT IN REACH.
--- NOTE | 2018-08-13 23:20 | NUR ---
MEDICATED WITH RESTORIL FOR C/O INSOMNIA.
[2018-08-14] VITALS: BP 130/80
--- NOTE | 2018-08-14 01:23 | NUR ---
24 HR chart check completed.
[2018-08-14 08:00] VITALS: BP 160/98
--- NOTE | 2018-08-14 10:40 | NUR ---
PT OUT OF ROOM FOR STRESS TEST. WILL REVISIT.
--- NOTE | 2018-08-14 11:30 | NUR ---
INFORMED CONSENT FOR CARDIOLYTE STRESS TEST WITH DR. GARCIA. RESTING EKG NSR, HR 76, BP 132/92. COMPLETED 3:31 OF STANDARD AVIS PROTOCOL COMPLETING :31 STAGE II, 2.5MPH/12% GRADE. TREADMILL DECREASED AT THAT TIME TO 1.5 MPH/0% GRADE D/T C/O FATIGUE. LEXISCAN 0.4MG INJECTED AT 12:25. CONTINUED TO WALK FOR 2 MINUTES POST INJECTION. PEAK HEART RATE OF 114 ACHIEVED WHICH IS 66% PREDICTED MAXIMUM AND A PEAK BP OF 166/104. NO ARRHYTMIAS OR ST CHANGES NOTED. HAS A LOW EXERCISE TOLERANCE. LAST RECOVERY HR 114, BP 140/86. WAITING NUCLEAR SCANNING IN STABLE CONDITION.
[2018-08-14] MEDS ORDERED: VITAMIN D-32000 UNI1 PO (13:42)
[2018-08-14] MEDS ORDERED: NORMODYNE,TRAN200 MG PO (13:42)
--- NOTE | 2018-08-14 14:20 | NUR ---
Discharge instructions reviewed with patient/family. Patient receptive and verbalizes understanding. Follow-up care arranged. Written instructions given to patient/family. BELKIS BENNETT
--- NOTE | 2018-08-14 14:58 | NUR ---
ALLANAGER BACK TO SEE PT. PT HAS BEEN DISCHARGED AND HAS LEFT FLOOR.
== END 2018-08-14 14:20 | disposition home or self-care (01) | DRG 392 ==
LOC: ED 14:40 → 5E 18:24 → EDHOLD 18:24 → 5E 18:36
PROVIDERS: Emergency Medicine; Internal Medicine; Nurse Practitioner Family; ADMIT Internal Medicine
PROC: 4A02XM4 Measurement of Cardiac Total Activity, External Approach (ICD-10-PCS; principal; 2018-08-14)
PROC: 3E073KZ Introduction of Other Diagnostic Substance into Coronary Artery, Percutaneous Approach (ICD-10-PCS; 2018-08-14)
DX: K21.9 Gastro-esophageal reflux disease without esophagitis (principal); I16.0 Hypertensive urgency; F10.10 Alcohol abuse, uncomplicated; D64.9 Anemia, unspecified; E11.65 Type 2 diabetes mellitus with hyperglycemia; F12.10 Cannabis abuse, uncomplicated; I10 Essential (primary) hypertension; E66.9 Obesity, unspecified; I25.10 Atherosclerotic heart disease of native coronary artery without angina pectoris; E78.5 Hyperlipidemia, unspecified; Z79.4 Long term (current) use of insulin; Z88.8 Allergy status to other drugs, medicaments and biological substances; Z83.3 Family history of diabetes mellitus; Z80.8 Family history of malignant neoplasm of other organs or systems; Z82.49 Family history of ischemic heart disease and other diseases of the circulatory system; Z79.82 Long term (current) use of aspirin; Z79.899 Other long term (current) drug therapy; Z68.36 Body mass index [BMI] 36.0-36.9, adult

== ENCOUNTER 2019-11-30 03:31 | Emergency (ER) | payer SELFPAY ==
[~2019-11-30] VITALS: Wt 108.9 kg
[~2019-11-30 03:31] MED LIST changes: +BASAG SOL SC; +LABETALOL HYDR200 MG PO; +NORMODYNE,TRAN200 MG PO; +NORVASC10 MG PO; +VITAMIN D-32000 UNI1 PO
[2019-11-30] MEDS ORDERED: LISINOPRIL40 MG PO (05:02)
[2019-11-30 05:56] VITALS: BP 176/98
== END 2019-11-30 06:08 | disposition home or self-care (01) ==
LOC: ED 03:31
DX: E11.65 Type 2 diabetes mellitus with hyperglycemia (principal); I16.0 Hypertensive urgency; Z88.8 Allergy status to other drugs, medicaments and biological substances; Z79.899 Other long term (current) drug therapy

== ENCOUNTER → 2020-06-10 | Outpatient (CLI) | payer OTHER ==
[~2020-06-10] MED LIST changes: +CARVEDILOL6.25 MG PO; +CLONIDINE HCL0.1 MG PO; +HYDRALAZINE HC100 MG PO; +LANTUS SOL100 UNIT/1 SC; -LIPITOR40 MG PO; +LIPITOR80 MG PO; +LISPRO INSULIN SC; +LISPRO INSULIN SQ
== END | disposition home or self-care (01) ==
LOC: CARD 00:14
PROVIDERS: ATTEND Internal Medicine Cardiovascular Disease
DX: I51.7 Cardiomegaly (principal)

== ENCOUNTER 2020-06-11 02:06 | Observation (INO) | payer OTHER ==
[~2020-06-11] VITALS: Ht 170.1 cm; Wt 110.3 kg
[2020-06-11 02:11] VITALS: BP 134/75
[2020-06-11 02:36] LABS: BASO % 0.4 % (0.0-1.0); EOS # 0.1 10*3/uL (0.0-0.4); EOS % 0.6 % (1.0-4.0); HEMATOCRIT 28.5 % (42.0-52.0); LYMPH # 1.9 10*3/uL (1.3-4.4); LYMPH % 22.6 % (27.0-41.0); MEAN CELL VOLUME 95.6 fl (80.0-94.0); MEAN CORPUSCULAR HGB 29.9 pg (27.0-31.0); MEAN CORPUSCULAR HGB CONC 31.2 g/dl (33.0-37.0); MEAN PLATELET VOLUME 9.5 fl (9.6-12.3); MONO # 0.7 10*3/uL (0.1-1.0); MONO % 8.7 % (3.0-9.0); NEUT # 5.6 10*3/uL (2.3-7.9); NEUT % 67.5 % (47.0-73.0); PLATELET COUNT AUTOMATED 312 10*3/uL (130-400); RED BLOOD COUNT 2.98 10*6/uL (4.50-5.90); RED CELL DISTRI WIDTH 12.2 % (0-14.5); WHITE BLOOD COUNT 8.4 10*3/uL (4.8-10.8)
[2020-06-11 02:57] LABS: ALBUMIN 2.4 gm/dl (3.1-4.5); ALKALINE PHOSPHATASE 80 U/L (45-117); BUN 16 mg/dl (7-24); CHLORIDE 108 mmol/L (98-107); CREATININE 1.27 mg/dL (0.70-1.30); POTASSIUM 3.8 mmol/L (3.5-5.1); SGOT/AST 14 IU/L (3-35); SGPT/ALT 26 U/L (12-78); SODIUM 139 mmol/L (136-145); TOTAL PROTEIN 6.3 gm/dL (6.4-8.2)
[2020-06-11 02:59] LABS: TROPONIN I < 0.015 ng/ml (<0.045)
[2020-06-11 04:00] VITALS: BP 160/88
[2020-06-11 06:12] LABS: BASO % 0.4 % (0.0-1.0); EOS % 0.5 % (1.0-4.0); HEMATOCRIT 29.7 % (42.0-52.0); LYMPH # 1.6 10*3/uL (1.3-4.4); LYMPH % 21.1 % (27.0-41.0); MEAN CELL VOLUME 93.7 fl (80.0-94.0); MEAN CORPUSCULAR HGB 29.3 pg (27.0-31.0); MEAN CORPUSCULAR HGB CONC 31.3 g/dl (33.0-37.0); MEAN PLATELET VOLUME 9.7 fl (9.6-12.3); MONO # 0.4 10*3/uL (0.1-1.0); MONO % 5.6 % (3.0-9.0); NEUT # 5.4 10*3/uL (2.3-7.9); PLATELET COUNT AUTOMATED 339 10*3/uL (130-400); RED BLOOD COUNT 3.17 10*6/uL (4.50-5.90); RED CELL DISTRI WIDTH 11.9 % (0-14.5); WHITE BLOOD COUNT 7.5 10*3/uL (4.8-10.8)
[2020-06-11 06:15] LABS: ACT PARTIAL THROMBO TIME 28.4 SECONDS (20.0-32.1)
[2020-06-11 06:17] LABS: ALBUMIN 2.5 gm/dl (3.1-4.5); ALKALINE PHOSPHATASE 83 U/L (45-117); BUN 15 mg/dl (7-24); CHLORIDE 109 mmol/L (98-107); CHOLESTEROL 109 mg/dL (<200); CREATININE 1.12 mg/dL (0.70-1.30); HDL CHOLESTEROL 39 mg/dl (40-60); LDL CHOLESTEROL 54 mg/dL (9-159); POTASSIUM 4.3 mmol/L (3.5-5.1); SGOT/AST 14 IU/L (3-35); SGPT/ALT 28 U/L (12-78); SODIUM 139 mmol/L (136-145); TOTAL PROTEIN 6.5 gm/dL (6.4-8.2); TRIGLYCERIDES 79 mg/dl (<150); VLDL CHOLESTEROL 16 mg/dL (6-40)
[2020-06-11 06:18] LABS: FREE T4 0.83 ng/dl (0.76-1.46)
[2020-06-11 08:00] VITALS: BP 169/87
[2020-06-11 08:22] LABS: VITAMIN D, 25-HYDROXY 19.7 ng/mL (30-100)
== END 2020-06-11 11:20 | disposition home or self-care (01) ==
LOC: ED 02:06 → EDHOLD 03:29 → 4E 03:38
PROVIDERS: Emergency Medicine; Internal Medicine; ADMIT Family Medicine; ATTEND Family Medicine
DX: R07.89 Other chest pain (principal); I10 Essential (primary) hypertension; F12.10 Cannabis abuse, uncomplicated; F17.290 Nicotine dependence, other tobacco product, uncomplicated; E11.65 Type 2 diabetes mellitus with hyperglycemia; D53.9 Nutritional anemia, unspecified; E87.8 Other disorders of electrolyte and fluid balance, not elsewhere classified; E43 Unspecified severe protein-calorie malnutrition; E78.5 Hyperlipidemia, unspecified; E55.9 Vitamin D deficiency, unspecified; E66.9 Obesity, unspecified; Z68.34 Body mass index [BMI] 34.0-34.9, adult

== ENCOUNTER → 2020-06-23 | Outpatient (CLI) | payer OTHER | END | disposition home or self-care (01) | LOC: CARD 08:30 | PROVIDERS: ATTEND Internal Medicine Cardiovascular Disease | DX: R06.00 Dyspnea, unspecified (principal) ==

== ENCOUNTER → 2020-07-04 | Outpatient (CLI) | payer OTHER | END | disposition home or self-care (01) | LOC: US 11:50 | PROVIDERS: ATTEND Nurse Practitioner Family | DX: I10 Essential (primary) hypertension (principal) ==

== ENCOUNTER 2020-07-15 15:11 | Inpatient (IN) | payer OTHER ==
[~2020-07-15] VITALS: Ht 170.1 cm; Wt 98.7 kg
[2020-07-15 15:14] VITALS: BP 188/97
[2020-07-15 15:56] LABS: BASO % 0.6 % (0.0-1.0); EOS % 0.3 % (1.0-4.0); HEMATOCRIT 33.8 % (42.0-52.0); LYMPH # 1.6 10*3/uL (1.3-4.4); LYMPH % 23.8 % (27.0-41.0); MEAN CELL VOLUME 88.5 fl (80.0-94.0); MEAN CORPUSCULAR HGB 29.1 pg (27.0-31.0); MEAN CORPUSCULAR HGB CONC 32.8 g/dl (33.0-37.0); MEAN PLATELET VOLUME 10.8 fl (9.6-12.3); MONO # 0.6 10*3/uL (0.1-1.0); MONO % 9.3 % (3.0-9.0); NEUT # 4.4 10*3/uL (2.3-7.9); NEUT % 65.7 % (47.0-73.0); PLATELET COUNT AUTOMATED 289 10*3/uL (130-400); RED BLOOD COUNT 3.82 10*6/uL (4.50-5.90); RED CELL DISTRI WIDTH 11.9 % (0-14.5); WHITE BLOOD COUNT 6.8 10*3/uL (4.8-10.8)
[2020-07-15 16:07] LABS: ACT PARTIAL THROMBO TIME 26.5 SECONDS (20.0-32.1); INTERNATIONAL NORM RATIO 1.1 (2.0-3.5)
[2020-07-15 16:14] LABS: ALBUMIN 2.9 gm/dl (3.1-4.5); ALKALINE PHOSPHATASE 100 U/L (45-117); BUN 20 mg/dl (7-24); CHLORIDE 105 mmol/L (98-107); CREATININE 1.63 mg/dL (0.70-1.30); LIPASE 416 U/L (73-393); POTASSIUM 4.4 mmol/L (3.5-5.1); SGOT/AST 17 IU/L (3-35); SGPT/ALT 20 U/L (12-78); SODIUM 135 mmol/L (136-145); TOTAL PROTEIN 7.6 gm/dL (6.4-8.2)
[2020-07-15 16:20] VITALS: BP 164/86
[2020-07-15 16:20] LABS: TROPONIN I < 0.015 ng/ml (<0.045)
[2020-07-15 16:35] LABS: BILIRUBIN Negative (Negative); BLOOD Negative (Negative); CLARITY Clear (Clear); COLOR Yellow (Yellow); GLUCOSE Trace (Negative); KETONE Negative (Negative); LEUKO ESTERASE Negative (Negative); NITRITE Negative (Negative); PH 6.5 (4.5-8.0)
[2020-07-15 16:42] LABS: BACTERIA 1+
[2020-07-15 20:00] VITALS: BP 167/96
[2020-07-15 22:10] VITALS: BP 167/96
[2020-07-16] VITALS: BP 181/97
[2020-07-16 04:00] VITALS: BP 168/96
[2020-07-16 06:05] LABS: ALBUMIN 2.8 gm/dl (3.1-4.5); ALKALINE PHOSPHATASE 90 U/L (45-117); BUN 19 mg/dl (7-24); CHLORIDE 106 mmol/L (98-107); CHOLESTEROL 130 mg/dL (<200); CREATININE 1.28 mg/dL (0.70-1.30); LDL CHOLESTEROL 74 mg/dL (9-159); POTASSIUM 3.8 mmol/L (3.5-5.1); SGOT/AST 11 IU/L (3-35); SGPT/ALT 17 U/L (12-78); SODIUM 138 mmol/L (136-145); TOTAL PROTEIN 6.8 gm/dL (6.4-8.2); TRIGLYCERIDES 109 mg/dl (<150)
[2020-07-16 06:18] LABS: BASO % 0.6 % (0.0-1.0); EOS # 0.1 10*3/uL (0.0-0.4); EOS % 1.3 % (1.0-4.0); HEMATOCRIT 33.4 % (42.0-52.0); LYMPH # 1.6 10*3/uL (1.3-4.4); LYMPH % 34.2 % (27.0-41.0); MEAN CELL VOLUME 89.1 fl (80.0-94.0); MEAN CORPUSCULAR HGB 29.1 pg (27.0-31.0); MEAN CORPUSCULAR HGB CONC 32.6 g/dl (33.0-37.0); MEAN PLATELET VOLUME 10.5 fl (9.6-12.3); MONO # 0.6 10*3/uL (0.1-1.0); MONO % 12.2 % (3.0-9.0); NEUT # 2.4 10*3/uL (2.3-7.9); NEUT % 51.5 % (47.0-73.0); PLATELET COUNT AUTOMATED 256 10*3/uL (130-400); RED BLOOD COUNT 3.75 10*6/uL (4.50-5.90); RED CELL DISTRI WIDTH 11.7 % (0-14.5); WHITE BLOOD COUNT 4.7 10*3/uL (4.8-10.8)
[2020-07-16 08:02] VITALS: BP 161/88
[2020-07-16] MEDS ORDERED: HYDROCHLOROTHIA50 M1 PO (10:30)
[2020-07-16] MEDS ORDERED: HUMALOG100 UNIT/1 SQ (10:34)
[2020-07-16 12:00] VITALS: BP 135/82
[2020-07-16 16:08] VITALS: BP 161/91
[2020-07-16 20:00] VITALS: BP 181/98
[2020-07-17] VITALS: BP 157/73
[2020-07-17 04:00] VITALS: BP 157/86
[2020-07-17 06:13] LABS: BASO % 0.9 % (0.0-1.0); EOS # 0.1 10*3/uL (0.0-0.4); EOS % 1.1 % (1.0-4.0); HEMATOCRIT 34.3 % (42.0-52.0); LYMPH # 1.5 10*3/uL (1.3-4.4); LYMPH % 31.4 % (27.0-41.0); MEAN CORPUSCULAR HGB 28.6 pg (27.0-31.0); MEAN CORPUSCULAR HGB CONC 31.8 g/dl (33.0-37.0); MEAN PLATELET VOLUME 10.6 fl (9.6-12.3); MONO # 0.5 10*3/uL (0.1-1.0); MONO % 11.5 % (3.0-9.0); NEUT # 2.5 10*3/uL (2.3-7.9); NEUT % 54.9 % (47.0-73.0); PLATELET COUNT AUTOMATED 268 10*3/uL (130-400); RED BLOOD COUNT 3.81 10*6/uL (4.50-5.90); RED CELL DISTRI WIDTH 11.8 % (0-14.5); WHITE BLOOD COUNT 4.6 10*3/uL (4.8-10.8)
[2020-07-17 06:32] LABS: BUN 22 mg/dl (7-24); CHLORIDE 104 mmol/L (98-107); POTASSIUM 3.7 mmol/L (3.5-5.1); SODIUM 137 mmol/L (136-145)
[2020-07-17 06:33] LABS: CREATININE 1.35 mg/dL (0.70-1.30)
[2020-07-17 07:59] VITALS: BP 149/79
[2020-07-17 12:00] VITALS: BP 156/97
[2020-07-17] MEDS ORDERED: CLOPIDOGREL75 MG PO (12:01)
[2020-07-17] MEDS ORDERED: ASPIRIN ADULT L81 M2 PO (12:01)
== END 2020-07-17 12:44 | disposition home or self-care (01) | DRG 45 ==
LOC: ED 15:11 → ICCU 20:22 → EDHOLD 20:22 → ICCU 21:20
PROVIDERS: Emergency Medicine; Internal Medicine; ADMIT Student in an Organized Health Care Education/Training Program; ATTEND Student in an Organized Health Care Education/Training Program
DX: I63.9 Cerebral infarction, unspecified (principal); D64.9 Anemia, unspecified; N17.0 Acute kidney failure with tubular necrosis; E44.0 Moderate protein-calorie malnutrition; R65.10 Systemic inflammatory response syndrome (SIRS) of non-infectious origin without acute organ dysfunction; E78.5 Hyperlipidemia, unspecified; I10 Essential (primary) hypertension; E55.9 Vitamin D deficiency, unspecified; E11.65 Type 2 diabetes mellitus with hyperglycemia; Z68.36 Body mass index [BMI] 36.0-36.9, adult; Z88.8 Allergy status to other drugs, medicaments and biological substances; Z83.3 Family history of diabetes mellitus; Z82.3 Family history of stroke; Z82.49 Family history of ischemic heart disease and other diseases of the circulatory system; Z79.899 Other long term (current) drug therapy; Z79.4 Long term (current) use of insulin; G45.9 Transient cerebral ischemic attack, unspecified

== ENCOUNTER 2020-08-02 15:51 | Emergency (ER) | payer OTHER ==
[~2020-08-02] VITALS: Ht 170.1 cm; Wt 100.2 kg
[~2020-08-02 15:51] MED LIST changes: +ASPIRIN ADULT L81 M2 PO; +CLOPIDOGREL75 MG PO; +HUMALOG100 UNIT/1 SQ; +HYDROCHLOROTHIA50 M1 PO
[2020-08-02 16:04] VITALS: BP 109/57
[2020-08-02 17:09] LABS: BASO % 0.5 % (0.0-1.0); EOS % 0.4 % (1.0-4.0); HEMATOCRIT 32.2 % (42.0-52.0); LYMPH # 1.1 10*3/uL (1.3-4.4); LYMPH % 14.3 % (27.0-41.0); MEAN CELL VOLUME 87.7 fl (80.0-94.0); MEAN CORPUSCULAR HGB 29.2 pg (27.0-31.0); MEAN CORPUSCULAR HGB CONC 33.2 g/dl (33.0-37.0); MEAN PLATELET VOLUME 10.6 fl (9.6-12.3); MONO # 0.4 10*3/uL (0.1-1.0); MONO % 4.6 % (3.0-9.0); NEUT # 6.4 10*3/uL (2.3-7.9); NEUT % 79.9 % (47.0-73.0); PLATELET COUNT AUTOMATED 304 10*3/uL (130-400); RED BLOOD COUNT 3.67 10*6/uL (4.50-5.90); RED CELL DISTRI WIDTH 11.7 % (0-14.5)
[2020-08-02 17:25] LABS: BUN 39 mg/dl (7-24); CHLORIDE 104 mmol/L (98-107); CREATININE 2.45 mg/dL (0.70-1.30); POTASSIUM 4.5 mmol/L (3.5-5.1); SODIUM 132 mmol/L (136-145)
[2020-08-02 17:28] LABS: TROPONIN I < 0.015 ng/ml (<0.045)
[2020-08-02] MEDS ORDERED: AMITRIPTYLINE25 MG PO (17:42)
== END 2020-08-02 18:24 | disposition home or self-care (01) ==
LOC: ED 15:51
PROVIDERS: Emergency Medicine
DX: I63.9 Cerebral infarction, unspecified (principal); G89.0 Central pain syndrome; F17.200 Nicotine dependence, unspecified, uncomplicated; I10 Essential (primary) hypertension; E11.9 Type 2 diabetes mellitus without complications; E66.9 Obesity, unspecified; E78.00 Pure hypercholesterolemia, unspecified; Z86.73 Personal history of transient ischemic attack (TIA), and cerebral infarction without residual deficits; Z79.899 Other long term (current) drug therapy; Z79.82 Long term (current) use of aspirin; Z79.4 Long term (current) use of insulin; Z88.8 Allergy status to other drugs, medicaments and biological substances; Z68.36 Body mass index [BMI] 36.0-36.9, adult

== ENCOUNTER 2020-10-05 00:43 | Inpatient (IN) | payer OTHER ==
[2020-10-05] VITALS (7 sets, daily range): BP systolic 127–168; BP diastolic 60–87
[~2020-10-05] VITALS: Ht 173 cm; Wt 105.9 kg
[~2020-10-05 00:43] MED LIST changes: +AMITRIPTYLINE25 MG PO
[2020-10-05 02:47] LABS: BASO % 0.4 % (0.0-1.0); EOS % 0.4 % (1.0-4.0); HEMATOCRIT 30.8 % (42.0-52.0); LYMPH # 1.4 10*3/uL (1.3-4.4); MEAN CELL VOLUME 98.4 fl (80.0-94.0); MEAN CORPUSCULAR HGB 30.7 pg (27.0-31.0); MEAN CORPUSCULAR HGB CONC 31.2 g/dl (33.0-37.0); MEAN PLATELET VOLUME 9.7 fl (9.6-12.3); MONO # 0.6 10*3/uL (0.1-1.0); MONO % 7.1 % (3.0-9.0); NEUT # 5.9 10*3/uL (2.3-7.9); NEUT % 73.5 % (47.0-73.0); PLATELET COUNT AUTOMATED 259 10*3/uL (130-400); RED BLOOD COUNT 3.13 10*6/uL (4.50-5.90); RED CELL DISTRI WIDTH 13.3 % (0-14.5)
[2020-10-05 03:02] LABS: ALBUMIN 3.2 gm/dl (3.1-4.5); ALKALINE PHOSPHATASE 75 U/L (45-117); BUN 20 mg/dl (7-24); CHLORIDE 109 mmol/L (98-107); CREATININE 1.43 mg/dL (0.70-1.30); POTASSIUM 5.7 mmol/L (3.5-5.1); SGOT/AST 14 IU/L (3-35); SGPT/ALT 29 U/L (12-78); SODIUM 135 mmol/L (136-145); TOTAL PROTEIN 6.7 gm/dL (6.4-8.2)
[2020-10-05 07:22] LABS: BILIRUBIN Negative (Negative); BLOOD Negative (Negative); CLARITY Clear (Clear); COLOR Yellow (Yellow); GLUCOSE Negative (Negative); KETONE Negative (Negative); LEUKO ESTERASE Negative (Negative); NITRITE Negative (Negative); PH 5.5 (4.5-8.0)
[2020-10-05 07:33] LABS: BACTERIA TRACE; EPITHELIAL CELLS 0-2
[2020-10-05 07:34] LABS: RBC 0-2 rbc/hpf (0-2); WBC 0-2 wbc/hpf (0-5)
[2020-10-05 14:25] LABS: BUN 20 mg/dl (7-24); CHLORIDE 109 mmol/L (98-107); CREATININE 1.27 mg/dL (0.70-1.30); SODIUM 137 mmol/L (136-145)
[2020-10-05 14:26] LABS: POTASSIUM 4.6 mmol/L (3.5-5.1)
[2020-10-05] MEDS ORDERED: NEURONTIN300 MG PO (15:10)
[2020-10-06 03:19] VITALS: BP 152/84
[2020-10-06 05:35] VITALS: BP 150/82
[2020-10-06 05:55] LABS: ALBUMIN 2.9 gm/dl (3.1-4.5); ALKALINE PHOSPHATASE 73 U/L (45-117); BUN 16 mg/dl (7-24); CHLORIDE 111 mmol/L (98-107); CREATININE 1.31 mg/dL (0.70-1.30); POTASSIUM 4.7 mmol/L (3.5-5.1); SGOT/AST 13 IU/L (3-35); SGPT/ALT 26 U/L (12-78); SODIUM 139 mmol/L (136-145); TOTAL PROTEIN 6.6 gm/dL (6.4-8.2)
[2020-10-06 06:00] VITALS: BP 162/75
[2020-10-06 06:06] LABS: BASO % 0.5 % (0.0-1.0); EOS % 0.5 % (1.0-4.0); HEMATOCRIT 32.2 % (42.0-52.0); LYMPH # 2.2 10*3/uL (1.3-4.4); LYMPH % 39.2 % (27.0-41.0); MEAN CELL VOLUME 98.5 fl (80.0-94.0); MEAN CORPUSCULAR HGB 30.6 pg (27.0-31.0); MEAN CORPUSCULAR HGB CONC 31.1 g/dl (33.0-37.0); MEAN PLATELET VOLUME 10.7 fl (9.6-12.3); MONO # 0.5 10*3/uL (0.1-1.0); MONO % 9.3 % (3.0-9.0); NEUT # 2.8 10*3/uL (2.3-7.9); NEUT % 50.1 % (47.0-73.0); PLATELET COUNT AUTOMATED 289 10*3/uL (130-400); RED BLOOD COUNT 3.27 10*6/uL (4.50-5.90); RED CELL DISTRI WIDTH 13.5 % (0-14.5); WHITE BLOOD COUNT 5.6 10*3/uL (4.8-10.8)
[2020-10-06 08:00] VITALS: BP 155/78
[2020-10-06] MEDS ORDERED: HUMALOG100 UNIT/2 SC (11:03)
== END 2020-10-06 12:39 | disposition home or self-care (01) | DRG 420 ==
LOC: ED 00:43 → EDHOLD 07:41 → 5E 07:41
PROVIDERS: Emergency Medicine; Internal Medicine; ADMIT Family Medicine; ATTEND Family Medicine
DX: E11.649 Type 2 diabetes mellitus with hypoglycemia without coma (principal); E86.0 Dehydration; E87.1 Hypo-osmolality and hyponatremia; N17.0 Acute kidney failure with tubular necrosis; E44.0 Moderate protein-calorie malnutrition; E66.9 Obesity, unspecified; D64.9 Anemia, unspecified; E87.5 Hyperkalemia; E87.8 Other disorders of electrolyte and fluid balance, not elsewhere classified; R79.82 Elevated C-reactive protein (CRP); I10 Essential (primary) hypertension; E78.5 Hyperlipidemia, unspecified; E55.9 Vitamin D deficiency, unspecified; Z86.73 Personal history of transient ischemic attack (TIA), and cerebral infarction without residual deficits; Z87.891 Personal history of nicotine dependence; Z83.3 Family history of diabetes mellitus; Z84.89 Family history of other specified conditions; Z88.8 Allergy status to other drugs, medicaments and biological substances; Z79.899 Other long term (current) drug therapy; Z79.82 Long term (current) use of aspirin; Z79.02 Long term (current) use of antithrombotics/antiplatelets; Z82.3 Family history of stroke; Z82.49 Family history of ischemic heart disease and other diseases of the circulatory system; Z68.35 Body mass index [BMI] 35.0-35.9, adult

== ENCOUNTER 2022-05-12 14:41 | Emergency (ER) | payer OTHER ==
[~2022-05-12] VITALS: Wt 96.6 kg
[2022-05-12 16:08] LABS: BASO # 0.1 10*3/uL (0.0-0.1); BASO % 0.8 % (0.0-1.0); EOS # 0.1 10*3/uL (0.0-0.4); EOS % 0.9 % (1.0-4.0); HEMATOCRIT 38.2 % (42.0-52.0); LYMPH # 2.3 10*3/uL (1.3-4.4); LYMPH % 29.2 % (27.0-41.0); MEAN CELL VOLUME 88.4 fl (80.0-94.0); MEAN CORPUSCULAR HGB 29.6 pg (27.0-31.0); MEAN CORPUSCULAR HGB CONC 33.5 g/dl (33.0-37.0); MEAN PLATELET VOLUME 10.6 fl (9.6-12.3); MONO # 0.4 10*3/uL (0.1-1.0); MONO % 5.7 % (3.0-9.0); NEUT # 4.9 10*3/uL (2.3-7.9); NEUT % 63.1 % (47.0-73.0); PLATELET COUNT AUTOMATED 361 10*3/uL (130-400); RED BLOOD COUNT 4.32 10*6/uL (4.50-5.90); RED CELL DISTRI WIDTH 11.9 % (0-14.5); WHITE BLOOD COUNT 7.7 10*3/uL (4.8-10.8)
[2022-05-12 16:21] LABS: ACT PARTIAL THROMBO TIME 23.9 SECONDS (20.0-32.1)
[2022-05-12 16:27] LABS: POTASSIUM 5.5 mmol/L (3.4-5.1); TOTAL PROTEIN 7.1 gm/dL (6.0-8.0)
[2022-05-12 16:31] VITALS: BP 157/93
== END 2022-05-12 17:37 | disposition home or self-care (01) ==
LOC: ED 14:41
PROVIDERS: Internal Medicine
DX: I16.0 Hypertensive urgency (principal); E11.9 Type 2 diabetes mellitus without complications; I25.10 Atherosclerotic heart disease of native coronary artery without angina pectoris; Z88.8 Allergy status to other drugs, medicaments and biological substances; Z98.890 Other specified postprocedural states; F10.10 Alcohol abuse, uncomplicated; Z87.891 Personal history of nicotine dependence; F12.90 Cannabis use, unspecified, uncomplicated

== ENCOUNTER → 2022-05-12 | Outpatient (CLI) | payer OTHER ==
[~2022-05-12] MED LIST changes: +'CLONIDINE0.1 MG PO; +CARVEDILOL25 MG PO; +DULOXETINE HCL30 MG PO; +HUMALOG100 UNIT/1 SC; +HUMALOG100 UNIT/2 SC; +METFORMIN HYD1000 MG PO; +VITAMIN D350 MC2 PO
== END | disposition home or self-care (01) ==
LOC: RESCLI 14:10
PROVIDERS: ATTEND Internal Medicine
DX: I16.0 Hypertensive urgency (principal); I63.9 Cerebral infarction, unspecified; G89.0 Central pain syndrome; E78.5 Hyperlipidemia, unspecified; E11.65 Type 2 diabetes mellitus with hyperglycemia; Z79.4 Long term (current) use of insulin; Z98.890 Other specified postprocedural states; Z82.49 Family history of ischemic heart disease and other diseases of the circulatory system; Z87.891 Personal history of nicotine dependence; Z72.89 Other problems related to lifestyle; Z79.84 Long term (current) use of oral hypoglycemic drugs; Z79.82 Long term (current) use of aspirin; Z79.899 Other long term (current) drug therapy

== ENCOUNTER → 2022-05-31 | Outpatient (CLI) | payer OTHER | END | disposition home or self-care (01) | LOC: RESCLI 00:43 | PROVIDERS: ATTEND Internal Medicine | DX: I12.9 Hypertensive chronic kidney disease with stage 1 through stage 4 chronic kidney disease, or unspecified chronic kidney disease (principal); E11.22 Type 2 diabetes mellitus with diabetic chronic kidney disease; N18.9 Chronic kidney disease, unspecified; E11.65 Type 2 diabetes mellitus with hyperglycemia; E78.5 Hyperlipidemia, unspecified; F10.90 Alcohol use, unspecified, uncomplicated; M54.9 Dorsalgia, unspecified; Z82.49 Family history of ischemic heart disease and other diseases of the circulatory system; Z98.890 Other specified postprocedural states; Z87.891 Personal history of nicotine dependence; Z79.899 Other long term (current) drug therapy ==

== ENCOUNTER → 2023-03-11 | Outpatient (CLI) | payer OTHER ==
[~2023-03-11] MED LIST changes: +CLONIDINE HCL0.2 MG PO; +HYDROCODONE-AC1 EAC1 PO; +[UNRECOGNIZED DRUG - SUPPLY] T
[2023-03-11 13:06] LABS: BASO # 0.1 10*3/uL (0.0-0.1); BASO % 0.8 % (0.0-1.0); EOS # 0.1 10*3/uL (0.0-0.4); EOS % 1.4 % (1.0-4.0); LYMPH # 1.7 10*3/uL (1.3-4.4); LYMPH % 26.1 % (27.0-41.0); MEAN CELL VOLUME 88.8 fl (80.0-94.0); MEAN CORPUSCULAR HGB 28.7 pg (27.0-31.0); MEAN CORPUSCULAR HGB CONC 32.4 g/dl (33.0-37.0); MEAN PLATELET VOLUME 9.8 fl (9.6-12.3); MONO # 0.5 10*3/uL (0.1-1.0); MONO % 8.1 % (3.0-9.0); NEUT # 4.2 10*3/uL (2.3-7.9); NEUT % 63.1 % (47.0-73.0); PLATELET COUNT AUTOMATED 447 10*3/uL (130-400); RED BLOOD COUNT 3.83 10*6/uL (4.50-5.90); RED CELL DISTRI WIDTH 12.5 % (0-14.5); WHITE BLOOD COUNT 6.7 10*3/uL (4.8-10.8)
[2023-03-11 13:09] LABS: BILIRUBIN Negative (Negative); BLOOD 1+ (Negative); CLARITY Clear (Clear); COLOR Yellow (Yellow); GLUCOSE Trace (Negative); KETONE Negative (Negative); LEUKO ESTERASE Negative (Negative); NITRITE Negative (Negative); PH 5.5 (4.5-8.0); SPECIFIC GRAVITY 1.015 (1.001-1.030); UROBILINOGEN 0.2 E.U./dl (0.0-1.0)
[2023-03-11 13:30] LABS: URINE CREATININE RANDOM 106.61 mg/dL
[2023-03-11 14:19] LABS: POTASSIUM 4.4 mmol/L (3.4-5.1)
[2023-03-11 14:22] LABS: VITAMIN D, 25-HYDROXY 14.7 ng/mL (30-100)
== END | disposition home or self-care (01) ==
LOC: LAB 12:18
PROVIDERS: ATTEND Nurse Practitioner Family
DX: E11.22 Type 2 diabetes mellitus with diabetic chronic kidney disease (principal); N18.4 Chronic kidney disease, stage 4 (severe); E11.21 Type 2 diabetes mellitus with diabetic nephropathy; D63.1 Anemia in chronic kidney disease; E55.9 Vitamin D deficiency, unspecified; N25.81 Secondary hyperparathyroidism of renal origin; R80.9 Proteinuria, unspecified

== ENCOUNTER 2023-03-12 16:08 | Inpatient (IN) | payer OTHER ==
[~2023-03-12] VITALS: Ht 170.1 cm; Wt 95.9 kg
[2023-03-12 16:17] VITALS: BP 187/96
[2023-03-12] MEDS ORDERED: CARVEDILOL25 MG PO (16:31)
[2023-03-12 16:46] LABS: BASO % 0.7 % (0.0-1.0); EOS # 0.1 10*3/uL (0.0-0.4); EOS % 1.4 % (1.0-4.0); HEMATOCRIT 32.8 % (42.0-52.0); MEAN CELL VOLUME 89.1 fl (80.0-94.0); MEAN CORPUSCULAR HGB 28.8 pg (27.0-31.0); MEAN CORPUSCULAR HGB CONC 32.3 g/dl (33.0-37.0); MEAN PLATELET VOLUME 9.4 fl (9.6-12.3); MONO # 0.5 10*3/uL (0.1-1.0); MONO % 8.3 % (3.0-9.0); NEUT # 3.3 10*3/uL (2.3-7.9); NEUT % 56.1 % (47.0-73.0); PLATELET COUNT AUTOMATED 402 10*3/uL (130-400); RED BLOOD COUNT 3.68 10*6/uL (4.50-5.90); RED CELL DISTRI WIDTH 12.6 % (0-14.5); WHITE BLOOD COUNT 5.9 10*3/uL (4.8-10.8)
[2023-03-12 16:47] LABS: VENOUS PH 7.285 (7.37-7.45)
[2023-03-12 17:13] LABS: ALKALINE PHOSPHATASE 134 U/L (46-116); BUN 45 mg/dl (9-23); CHLORIDE 107 mmol/L (98-107); POTASSIUM 4.8 mmol/L (3.4-5.1); TOTAL PROTEIN 6.3 gm/dL (6.0-8.0)
[2023-03-12 17:21] LABS: SGPT/ALT < 7 U/L (5-49)
[2023-03-12 20:37] VITALS: BP 130/71
[2023-03-12 20:40] VITALS: BP 186/96
[2023-03-13] VITALS: BP 138/80
[2023-03-13 05:34] LABS: ALKALINE PHOSPHATASE 119 U/L (46-116); BUN 45 mg/dl (9-23); CHLORIDE 110 mmol/L (98-107); POTASSIUM 4.6 mmol/L (3.4-5.1); SGPT/ALT < 7 U/L (5-49); TOTAL PROTEIN 5.7 gm/dL (6.0-8.0)
[2023-03-13 06:00] VITALS: BP 171/90
[2023-03-13 06:05] LABS: BASO # 0.1 10*3/uL (0.0-0.1); BASO % 0.8 % (0.0-1.0); EOS # 0.1 10*3/uL (0.0-0.4); EOS % 1.3 % (1.0-4.0); HEMATOCRIT 30.8 % (42.0-52.0); LYMPH # 2.3 10*3/uL (1.3-4.4); LYMPH % 37.3 % (27.0-41.0); MEAN CELL VOLUME 90.3 fl (80.0-94.0); MEAN CORPUSCULAR HGB 28.4 pg (27.0-31.0); MEAN CORPUSCULAR HGB CONC 31.5 g/dl (33.0-37.0); MONO # 0.6 10*3/uL (0.1-1.0); MONO % 10.4 % (3.0-9.0); NEUT % 49.9 % (47.0-73.0); PLATELET COUNT AUTOMATED 444 10*3/uL (130-400); RED BLOOD COUNT 3.41 10*6/uL (4.50-5.90); RED CELL DISTRI WIDTH 12.3 % (0-14.5); WHITE BLOOD COUNT 6.1 10*3/uL (4.8-10.8)
[2023-03-13 11:56] LABS: BILIRUBIN Negative (Negative); BLOOD Trace-Lysed (Negative); CLARITY Clear (Clear); COLOR Yellow (Yellow); GLUCOSE 2+ (Negative); KETONE Negative (Negative); LEUKO ESTERASE Negative (Negative); NITRITE Negative (Negative); SPECIFIC GRAVITY 1.015 (1.001-1.030); UROBILINOGEN 0.2 E.U./dl (0.0-1.0)
[2023-03-13 12:00] VITALS: BP 160/80
[2023-03-13 12:09] LABS: BACTERIA 3+
[2023-03-13 16:00] VITALS: BP 150/76
[2023-03-13 20:00] VITALS: BP 165/82
[2023-03-14] VITALS: BP 147/65
[2023-03-14 05:47] LABS: POTASSIUM 4.8 mmol/L (3.4-5.1)
[2023-03-14 06:01] LABS: BASO % 0.5 % (0.0-1.0); EOS # 0.1 10*3/uL (0.0-0.4); EOS % 1.7 % (1.0-4.0); HEMATOCRIT 30.8 % (42.0-52.0); LYMPH # 2.2 10*3/uL (1.3-4.4); LYMPH % 38.8 % (27.0-41.0); MEAN CELL VOLUME 90.9 fl (80.0-94.0); MEAN CORPUSCULAR HGB 28.9 pg (27.0-31.0); MEAN CORPUSCULAR HGB CONC 31.8 g/dl (33.0-37.0); MEAN PLATELET VOLUME 10.1 fl (9.6-12.3); MONO # 0.6 10*3/uL (0.1-1.0); MONO % 9.5 % (3.0-9.0); NEUT # 2.8 10*3/uL (2.3-7.9); NEUT % 48.3 % (47.0-73.0); PLATELET COUNT AUTOMATED 419 10*3/uL (130-400); RED BLOOD COUNT 3.39 10*6/uL (4.50-5.90); RED CELL DISTRI WIDTH 12.5 % (0-14.5); WHITE BLOOD COUNT 5.8 10*3/uL (4.8-10.8)
[2023-03-14 08:00] VITALS: BP 196/60
[2023-03-14 10:07] VITALS: BP 162/90
[2023-03-14 12:00] VITALS: BP 175/90
[2023-03-14] MEDS ORDERED: NEURONTIN300 MG PO (15:45)
[2023-03-14] MEDS ORDERED: CARVEDILOL25 MG PO (15:45)
== END 2023-03-14 17:30 | disposition home or self-care (01) | DRG 422 ==
LOC: ED 16:08 → EDHOLD 18:45 → 4E 18:45
PROVIDERS: Nurse Practitioner; Student in an Organized Health Care Education/Training Program; ADMIT Family Medicine; ATTEND Family Medicine
DX: E86.0 Dehydration (principal); N17.0 Acute kidney failure with tubular necrosis; E43 Unspecified severe protein-calorie malnutrition; E87.20 Acidosis, unspecified; N39.0 Urinary tract infection, site not specified; E11.65 Type 2 diabetes mellitus with hyperglycemia; E11.22 Type 2 diabetes mellitus with diabetic chronic kidney disease; G89.29 Other chronic pain; E66.9 Obesity, unspecified; E11.40 Type 2 diabetes mellitus with diabetic neuropathy, unspecified; E78.2 Mixed hyperlipidemia; E78.5 Hyperlipidemia, unspecified; N18.5 Chronic kidney disease, stage 5; E87.1 Hypo-osmolality and hyponatremia; I12.0 Hypertensive chronic kidney disease with stage 5 chronic kidney disease or end stage renal disease; E87.8 Other disorders of electrolyte and fluid balance, not elsewhere classified; D75.839 Thrombocytosis, unspecified; Z88.8 Allergy status to other drugs, medicaments and biological substances; Z83.3 Family history of diabetes mellitus; Z86.73 Personal history of transient ischemic attack (TIA), and cerebral infarction without residual deficits; Z79.4 Long term (current) use of insulin; Z68.33 Body mass index [BMI] 33.0-33.9, adult

== ENCOUNTER → 2023-03-24 | Outpatient (CLI) | payer OTHER ==
[2023-03-24 11:04] LABS: BASO % 0.2 % (0.0-1.0); EOS % 0.1 % (1.0-4.0); HEMATOCRIT 31.8 % (42.0-52.0); LYMPH # 0.9 10*3/uL (1.3-4.4); LYMPH % 6.7 % (27.0-41.0); MEAN CELL VOLUME 85.9 fl (80.0-94.0); MEAN CORPUSCULAR HGB 28.4 pg (27.0-31.0); MEAN PLATELET VOLUME 10.3 fl (9.6-12.3); MONO # 0.5 10*3/uL (0.1-1.0); MONO % 3.5 % (3.0-9.0); NEUT # 11.8 10*3/uL (2.3-7.9); NEUT % 88.8 % (47.0-73.0); PLATELET COUNT AUTOMATED 368 10*3/uL (130-400); RED CELL DISTRI WIDTH 12.7 % (0-14.5); WHITE BLOOD COUNT 13.3 10*3/uL (4.8-10.8)
[2023-03-24 11:33] LABS: POTASSIUM 5.1 mmol/L (3.4-5.1)
== END | disposition home or self-care (01) ==
LOC: LAB 10:31
PROVIDERS: ATTEND Nurse Practitioner Family
DX: N18.4 Chronic kidney disease, stage 4 (severe) (principal)

== ENCOUNTER 2023-04-05 08:57 | Inpatient (IN) | payer OTHER ==
[~2023-04-05] VITALS: Ht 170.1 cm; Wt 96.6 kg
[2023-04-05 09:02] VITALS: BP 161/96
[2023-04-05] MEDS ORDERED: LANTUS SOL100 UNIT/1 SC (09:25)
[2023-04-05 09:28] LABS: BASO % 0.4 % (0.0-1.0); EOS # 0.1 10*3/uL (0.0-0.4); EOS % 0.6 % (1.0-4.0); HEMATOCRIT 27.4 % (42.0-52.0); LYMPH # 0.9 10*3/uL (1.3-4.4); LYMPH % 11.6 % (27.0-41.0); MEAN CELL VOLUME 86.4 fl (80.0-94.0); MEAN CORPUSCULAR HGB 27.8 pg (27.0-31.0); MEAN CORPUSCULAR HGB CONC 32.1 g/dl (33.0-37.0); MEAN PLATELET VOLUME 9.5 fl (9.6-12.3); MONO # 0.6 10*3/uL (0.1-1.0); MONO % 7.2 % (3.0-9.0); NEUT # 6.3 10*3/uL (2.3-7.9); NEUT % 79.8 % (47.0-73.0); PLATELET COUNT AUTOMATED 373 10*3/uL (130-400); RED BLOOD COUNT 3.17 10*6/uL (4.50-5.90); RED CELL DISTRI WIDTH 12.4 % (0-14.5); WHITE BLOOD COUNT 7.9 10*3/uL (4.8-10.8)
[2023-04-05 09:46] LABS: ACT PARTIAL THROMBO TIME 32.9 SECONDS (20.0-32.1)
[2023-04-05 09:49] LABS: ALKALINE PHOSPHATASE 165 U/L (46-116); BUN 52 mg/dl (9-23); CHLORIDE 105 mmol/L (98-107); LIPASE 44 U/L (12-53); POTASSIUM 4.6 mmol/L (3.4-5.1); SGPT/ALT 9 U/L (5-49); TOTAL PROTEIN 6.4 gm/dL (6.0-8.0)
[2023-04-05 10:04] LABS: BILIRUBIN Negative (Negative); BLOOD 1+ (Negative); CLARITY Clear (Clear); COLOR Yellow (Yellow); GLUCOSE 2+ (Negative); KETONE Trace (Negative); LEUKO ESTERASE Negative (Negative); NITRITE Negative (Negative); SPECIFIC GRAVITY 1.015 (1.001-1.030); UROBILINOGEN 0.2 E.U./dl (0.0-1.0)
[2023-04-05 10:14] LABS: BACTERIA 1+; EPITHELIAL CELLS 0-2; HYALINE CAST 0-2
[2023-04-05] MEDS ORDERED: SODIUM CHLORIDE 0.9% 1,000 ML IV ONE (12:50)
[2023-04-05] MEDS ORDERED: ACETAMINOPHEN 325 MG TAB PO PRN (14:25)
[2023-04-05] MEDS ORDERED: Acetaminophen/Hydrocodone 5 MG/325 MG TABLET PO PRN (14:25)
[2023-04-05] MEDS ORDERED: MORPHINE Sulfate 2 MG/ML SYR IV PRN (14:25)
[2023-04-05] MEDS ORDERED: DEXTROSE 10 % IN WATER 250 ML IV PRN (14:25)
[2023-04-05] MEDS ORDERED: Ondansetron Hydrochloride 4 MG/2 ML VIAL IV PRN (14:25)
[2023-04-05] MEDS ORDERED: Lactated Ringer's Solution 1,000 ML IV SCH (14:40)
[2023-04-05] MEDS ORDERED: SODIUM CHLORIDE 0.9% 1,000 ML IV SCH (14:45)
[2023-04-05] MEDS ORDERED: MAGNESIUM SULFATE 50 ML IV ONE (14:45)
[2023-04-05] MEDS ORDERED: INSULIN LISPRO 1 UNIT/0.01 ML SQ SCH (16:30)
[2023-04-05 17:32] VITALS: BP 159/84
[2023-04-05 21:04] VITALS: BP 183/97
[2023-04-05] MEDS ORDERED: CARVEDILOL 25 MG TAB PO SCH (22:00)
[2023-04-05] MEDS ORDERED: cloNIDine Hydrochloride 0.2 MG TAB PO SCH (22:00)
[2023-04-05] MEDS ORDERED: GABAPENTIN 300 MG CAP PO SCH (22:00)
[2023-04-05] MEDS ORDERED: HEPARIN SODIUM 5,000 UNIT/ML VIAL SC SCH (22:00)
[2023-04-05 23:42] VITALS: BP 144/83
[2023-04-06 02:33] VITALS: BP 157/79
[2023-04-06 05:27] VITALS: BP 169/98
[2023-04-06] MEDS ORDERED: Pantoprazole Sodium 40 MG TAB PO SCH (06:00)
[2023-04-06 07:08] LABS: BASO % 0.5 % (0.0-1.0); EOS # 0.1 10*3/uL (0.0-0.4); EOS % 0.7 % (1.0-4.0); HEMATOCRIT 24.3 % (42.0-52.0); LYMPH # 1.6 10*3/uL (1.3-4.4); LYMPH % 20.9 % (27.0-41.0); MEAN CELL VOLUME 85.9 fl (80.0-94.0); MEAN CORPUSCULAR HGB 28.3 pg (27.0-31.0); MEAN CORPUSCULAR HGB CONC 32.9 g/dl (33.0-37.0); MEAN PLATELET VOLUME 9.1 fl (9.6-12.3); MONO # 0.6 10*3/uL (0.1-1.0); MONO % 8.3 % (3.0-9.0); NEUT # 5.2 10*3/uL (2.3-7.9); NEUT % 69.2 % (47.0-73.0); PLATELET COUNT AUTOMATED 371 10*3/uL (130-400); RED BLOOD COUNT 2.83 10*6/uL (4.50-5.90); RED CELL DISTRI WIDTH 12.5 % (0-14.5); WHITE BLOOD COUNT 7.6 10*3/uL (4.8-10.8)
[2023-04-06 07:35] LABS: POTASSIUM 4.9 mmol/L (3.4-5.1)
[2023-04-06] MEDS ORDERED: Insulin Glargine, Recombinan 1 UNIT/0.01 ML SC SCH (10:00)
[2023-04-06] MEDS ORDERED: amLODIPine besylate 10 MG TAB PO SCH (10:00)
[2023-04-06 10:13] VITALS: BP 147/77
[2023-04-06] MEDS ORDERED: SODIUM BICARBO650 MG PO (12:17)
[2023-04-06] MEDS ORDERED: LANTUS SOL100 UNIT/1 SC (12:17)
== END 2023-04-06 14:46 | disposition home or self-care (01) | DRG 422 ==
LOC: ED 08:57 → EDHOLD 12:51
PROVIDERS: Emergency Medicine; Student in an Organized Health Care Education/Training Program; ADMIT Internal Medicine; ATTEND Internal Medicine
DX: E86.0 Dehydration (principal); E11.65 Type 2 diabetes mellitus with hyperglycemia; I31.39 Other pericardial effusion (noninflammatory); I12.0 Hypertensive chronic kidney disease with stage 5 chronic kidney disease or end stage renal disease; E87.1 Hypo-osmolality and hyponatremia; E83.42 Hypomagnesemia; I25.10 Atherosclerotic heart disease of native coronary artery without angina pectoris; E78.2 Mixed hyperlipidemia; R79.1 Abnormal coagulation profile; R31.9 Hematuria, unspecified; N18.5 Chronic kidney disease, stage 5; D64.9 Anemia, unspecified; I16.0 Hypertensive urgency; E11.42 Type 2 diabetes mellitus with diabetic polyneuropathy; D50.9 Iron deficiency anemia, unspecified; R19.7 Diarrhea, unspecified; Z86.73 Personal history of transient ischemic attack (TIA), and cerebral infarction without residual deficits; Z79.4 Long term (current) use of insulin; Z83.3 Family history of diabetes mellitus

== ENCOUNTER → 2023-05-25 | Outpatient (CLI) | payer OTHER ==
[~2023-05-25] MED LIST changes: +SODIUM BICARBO650 MG PO
[2023-05-25 09:05] LABS: BASO # 0.1 10*3/uL (0.0-0.1); BASO % 0.7 % (0.0-1.0); EOS # 0.1 10*3/uL (0.0-0.4); EOS % 0.8 % (1.0-4.0); HEMATOCRIT 36.5 % (42.0-52.0); LYMPH # 1.5 10*3/uL (1.3-4.4); LYMPH % 20.3 % (27.0-41.0); MEAN CELL VOLUME 91.3 fl (80.0-94.0); MEAN CORPUSCULAR HGB 28.3 pg (27.0-31.0); MEAN PLATELET VOLUME 9.9 fl (9.6-12.3); MONO # 0.5 10*3/uL (0.1-1.0); MONO % 6.6 % (3.0-9.0); NEUT # 5.2 10*3/uL (2.3-7.9); NEUT % 71.3 % (47.0-73.0); PLATELET COUNT AUTOMATED 380 10*3/uL (130-400); WHITE BLOOD COUNT 7.3 10*3/uL (4.8-10.8)
[2023-05-25 09:08] LABS: BILIRUBIN Negative (Negative); BLOOD 1+ (Negative); CLARITY Clear (Clear); COLOR Yellow (Yellow); GLUCOSE 1+ (Negative); KETONE Negative (Negative); LEUKO ESTERASE Negative (Negative); NITRITE Negative (Negative); SPECIFIC GRAVITY 1.015 (1.001-1.030); UROBILINOGEN 0.2 E.U./dl (0.0-1.0)
[2023-05-25 09:13] LABS: BACTERIA TRACE; EPITHELIAL CELLS 0-2; WBC 0-2 wbc/hpf (0-5)
[2023-05-25 11:20] LABS: VITAMIN D, 25-HYDROXY 6.6 ng/mL (30-100)
[2023-05-25 13:17] LABS: URINE CREATININE RANDOM 42.95 mg/dL
[2023-05-25 13:42] LABS: POTASSIUM 6.2 mmol/L (3.4-5.1)
== END | disposition home or self-care (01) ==
LOC: LAB 08:43
PROVIDERS: ATTEND Nurse Practitioner Family
DX: E11.22 Type 2 diabetes mellitus with diabetic chronic kidney disease (principal); N18.4 Chronic kidney disease, stage 4 (severe); E11.21 Type 2 diabetes mellitus with diabetic nephropathy; D63.1 Anemia in chronic kidney disease; R80.9 Proteinuria, unspecified

== ENCOUNTER 2023-05-31 11:33 | Inpatient (IN) | payer OTHER ==
[~2023-05-31] VITALS: Ht 170.2 cm; Wt 99.8 kg
[2023-05-31] VITALS (23 sets, daily range): BP systolic 154–233; BP diastolic 81–128
[2023-05-31] MEDS ORDERED: hydrALAZINE hydrochloride 20 MG/ML VIAL IV ONE ×2 (12:15→15:00)
[2023-05-31] MEDS ORDERED: CALCIUM GLUC IN NACL, ISO-OSM 100 ML IV ONE (12:20)
[2023-05-31] MEDS ORDERED: SODIUM POLYSTYRENE SULFONATE 15 GM/60 ML BOT PO ONE (12:20)
[2023-05-31 12:27] LABS: BASO % 0.8 % (0.0-1.0); EOS % 0.6 % (1.0-4.0); HEMATOCRIT 33.2 % (42.0-52.0); LYMPH # 1.1 10*3/uL (1.3-4.4); LYMPH % 21.7 % (27.0-41.0); MEAN CORPUSCULAR HGB 28.5 pg (27.0-31.0); MEAN CORPUSCULAR HGB CONC 31.3 g/dl (33.0-37.0); MONO # 0.4 10*3/uL (0.1-1.0); MONO % 7.2 % (3.0-9.0); NEUT # 3.6 10*3/uL (2.3-7.9); NEUT % 69.5 % (47.0-73.0); PLATELET COUNT AUTOMATED 310 10*3/uL (130-400); RED BLOOD COUNT 3.65 10*6/uL (4.50-5.90); RED CELL DISTRI WIDTH 13.8 % (0-14.5); WHITE BLOOD COUNT 5.2 10*3/uL (4.8-10.8)
[2023-05-31 13:39] LABS: ALKALINE PHOSPHATASE 102 U/L (46-116); BUN 60 mg/dl (9-23); CHLORIDE 108 mmol/L (98-107); POTASSIUM 5.6 mmol/L (3.4-5.1); SGPT/ALT 11 U/L (5-49); TOTAL PROTEIN 5.7 gm/dL (6.0-8.0)
[2023-05-31] MEDS ORDERED: INSULIN REGULAR, HUMAN 1 UNIT/0.01 ML IV ONE (15:20)
[2023-05-31] MEDS ORDERED: DEXTROSE 10 % IN WATER 250 ML IV PRN (15:40)
[2023-05-31] MEDS ORDERED: Magnesium Hydroxide 30 ML UDC PO PRN (15:40)
[2023-05-31] MEDS ORDERED: ACETAMINOPHEN 325 MG TAB PO PRN (15:40)
[2023-05-31] MEDS ORDERED: BISACODYL 5 MG TAB PO PRN (15:40)
[2023-05-31] MEDS ORDERED: Labetalol Hydrochloride 20 MG/4 ML SYR IV ONE ×2 (16:10→16:50)
[2023-05-31] MEDS ORDERED: INSULIN LISPRO 1 UNIT/0.01 ML SQ SCH (16:30)
[2023-05-31] MEDS ORDERED: cloNIDine Hydrochloride 0.2 MG TAB PO ONE (17:05)
[2023-05-31] MEDS ORDERED: BUMETANIDE 1 MG TAB PO SCH (17:15)
[2023-05-31] MEDS ORDERED: Cholecalciferol 5,000 IU CAP (125 MCG) PO SCH (17:15)
[2023-05-31 17:24] LABS: POTASSIUM 4.7 mmol/L (3.4-5.1)
[2023-05-31] MEDS ORDERED: CARVEDILOL 25 MG TAB PO SCH (17:30)
[2023-05-31] MEDS ORDERED: cloNIDine Hydrochloride 0.2 MG TAB PO SCH (18:00)
[2023-05-31] MEDS ORDERED: SODIUM BICARBONATE 650 MG TAB PO SCH (18:00)
[2023-05-31] MEDS ORDERED: AMLODIPINE BESY10 MG PO (21:04)
[2023-05-31] MEDS ORDERED: HEPARIN SODIUM 5,000 UNIT/ML VIAL SC SCH (22:00)
[2023-05-31] MEDS ORDERED: niCARdipine hydrochloride 25 MG in SODIUM CHLORIDE 0.9% 240 ML IV SCH (22:15)
[2023-06-01] VITALS (28 sets, daily range): BP systolic 134–229; BP diastolic 63–120
[2023-06-01 06:28] LABS: ACT PARTIAL THROMBO TIME 28.7 SECONDS (20.0-32.1)
[2023-06-01 06:36] LABS: ALKALINE PHOSPHATASE 95 U/L (46-116); BUN 63 mg/dl (9-23); CHLORIDE 108 mmol/L (98-107); FREE T4 0.79 ng/dl (0.89-1.76); POTASSIUM 4.2 mmol/L (3.4-5.1); SGPT/ALT 10 U/L (5-49); TOTAL PROTEIN 5.2 gm/dL (6.0-8.0)
[2023-06-01 06:44] LABS: BASO % 0.5 % (0.0-1.0); EOS # 0.1 10*3/uL (0.0-0.4); EOS % 1.2 % (1.0-4.0); HEMATOCRIT 32.5 % (42.0-52.0); LYMPH # 1.3 10*3/uL (1.3-4.4); MEAN CELL VOLUME 89.8 fl (80.0-94.0); MEAN CORPUSCULAR HGB 28.2 pg (27.0-31.0); MEAN CORPUSCULAR HGB CONC 31.4 g/dl (33.0-37.0); MEAN PLATELET VOLUME 10.7 fl (9.6-12.3); MONO # 0.5 10*3/uL (0.1-1.0); MONO % 9.1 % (3.0-9.0); NEUT % 67.7 % (47.0-73.0); PLATELET COUNT AUTOMATED 325 10*3/uL (130-400); RED BLOOD COUNT 3.62 10*6/uL (4.50-5.90); RED CELL DISTRI WIDTH 13.9 % (0-14.5); WHITE BLOOD COUNT 5.9 10*3/uL (4.8-10.8)
[2023-06-01] MEDS ORDERED: CALCIUM ACETATE 667 MG CAP PO SCH (08:40)
[2023-06-01] MEDS ORDERED: CALCIUM GLUC IN NACL, ISO-OSM 100 ML IV ONE (08:45)
[2023-06-01] MEDS ORDERED: CALCITRIOL 0.25 MCG CAP PO SCH (10:00)
[2023-06-01] MEDS ORDERED: amLODIPine besylate 10 MG TAB PO SCH ×2 (10:00→11:13)
[2023-06-01] MEDS ORDERED: Insulin Glargine, Recombinan 1 UNIT/0.01 ML SC SCH (10:00)
[2023-06-01] MEDS ORDERED: GABAPENTIN 300 MG CAP PO SCH (10:00)
[2023-06-01] MEDS ORDERED: cloNIDine Hydrochloride 0.2 MG TAB PO ONE (14:55)
[2023-06-02] VITALS (20 sets, daily range): BP systolic 121–219; BP diastolic 63–118
[2023-06-02] MEDS ORDERED: cloNIDine Hydrochloride 0.2 MG TAB PO ONE (00:05)
[2023-06-02 06:15] LABS: BASO # 0.1 10*3/uL (0.0-0.1); BASO % 0.9 % (0.0-1.0); EOS # 0.1 10*3/uL (0.0-0.4); EOS % 1.1 % (1.0-4.0); HEMATOCRIT 33.1 % (42.0-52.0); LYMPH # 1.8 10*3/uL (1.3-4.4); LYMPH % 31.9 % (27.0-41.0); MEAN CELL VOLUME 90.2 fl (80.0-94.0); MEAN CORPUSCULAR HGB 28.6 pg (27.0-31.0); MEAN CORPUSCULAR HGB CONC 31.7 g/dl (33.0-37.0); MEAN PLATELET VOLUME 10.5 fl (9.6-12.3); MONO # 0.4 10*3/uL (0.1-1.0); MONO % 6.9 % (3.0-9.0); NEUT # 3.3 10*3/uL (2.3-7.9); PLATELET COUNT AUTOMATED 351 10*3/uL (130-400); RED BLOOD COUNT 3.67 10*6/uL (4.50-5.90); RED CELL DISTRI WIDTH 13.7 % (0-14.5); WHITE BLOOD COUNT 5.5 10*3/uL (4.8-10.8)
[2023-06-02 06:20] LABS: ACT PARTIAL THROMBO TIME 29.8 SECONDS (20.0-32.1)
[2023-06-02 06:45] LABS: ALKALINE PHOSPHATASE 101 U/L (46-116); BUN 62 mg/dl (9-23); CHLORIDE 107 mmol/L (98-107); POTASSIUM 4.7 mmol/L (3.4-5.1); SGPT/ALT 8 U/L (5-49); TOTAL PROTEIN 5.6 gm/dL (6.0-8.0)
[2023-06-02] MEDS ORDERED: cloNIDine Hydrochloride 0.2 MG TAB PO SCH (07:15)
[2023-06-02] MEDS ORDERED: SODIUM POLYSTYRENE SULFONATE 15 GM/60 ML BOT PO SCH (10:00)
[2023-06-02] MEDS ORDERED: CALCIUM (TUMS) 500MG PO SCH (11:40)
[2023-06-02] MEDS ORDERED: Lidocaine Hydrochloride 30 ML VIAL ONE (13:54)
[2023-06-02] MEDS ORDERED: HEPARIN SODIUM,PORCINE/PF 30 UNIT/3 ML SYRINGE IV ONE (13:54)
[2023-06-02] MEDS ORDERED: SODIUM BICARBONATE 50 MEQ/50 ML VIAL IV ONE (13:55)
[2023-06-02] MEDS ORDERED: SODIUM CHLORIDE 0.9% 100 ML IV ONE (13:55)
[2023-06-02] MEDS ORDERED: IOHEXOL 240 MG/ML 20 ML SOL ONE (13:56)
[2023-06-02] MEDS ORDERED: SODIUM CHLORIDE 0.9% 1,000 ML IV ONE (13:57)
[2023-06-02] MEDS ORDERED: ISOSORBIDE DINITRATE 10 MG TAB PO SCH (14:00)
[2023-06-02] MEDS ORDERED: HEPARIN SODIUM 500 UNIT/5 ML SYR IV ONE (14:25)
[2023-06-02] MEDS ORDERED: Midazolam Hydrochloride 2 MG/2 ML VIAL ONE (14:39)
[2023-06-02] MEDS ORDERED: Midazolam Hydrochloride 2 MG/2 ML VIAL IV ONE (15:20)
[2023-06-02] MEDS ORDERED: BUMETANIDE 1 MG TAB PO SCH (16:30)
[2023-06-02] MEDS ORDERED: Acetaminophen/Hydrocodone 5 MG/325 MG TABLET PO PRN (16:55)
[2023-06-02] MEDS ORDERED: Losartan Potassium 50 MG TAB PO SCH (17:00)
[2023-06-03] VITALS: BP 149/59
[2023-06-03 04:00] VITALS: BP 151/88
[2023-06-03 05:44] LABS: ALKALINE PHOSPHATASE 93 U/L (46-116); BUN 64 mg/dl (9-23); CHLORIDE 106 mmol/L (98-107); SGPT/ALT < 7 U/L (5-49); TOTAL PROTEIN 5.2 gm/dL (6.0-8.0)
[2023-06-03 06:08] LABS: HEPATITIS B SURFACE AG Negative (Negative)
[2023-06-03 06:44] LABS: BASO % 0.7 % (0.0-1.0); EOS # 0.1 10*3/uL (0.0-0.4); EOS % 1.1 % (1.0-4.0); HEMATOCRIT 31.3 % (42.0-52.0); LYMPH # 1.7 10*3/uL (1.3-4.4); LYMPH % 29.7 % (27.0-41.0); MEAN CELL VOLUME 91.8 fl (80.0-94.0); MEAN CORPUSCULAR HGB 28.4 pg (27.0-31.0); MEAN PLATELET VOLUME 10.6 fl (9.6-12.3); MONO # 0.5 10*3/uL (0.1-1.0); NEUT # 3.4 10*3/uL (2.3-7.9); NEUT % 59.3 % (47.0-73.0); PLATELET COUNT AUTOMATED 318 10*3/uL (130-400); RED BLOOD COUNT 3.41 10*6/uL (4.50-5.90); RED CELL DISTRI WIDTH 13.8 % (0-14.5); WHITE BLOOD COUNT 5.7 10*3/uL (4.8-10.8)
[2023-06-03 08:00] VITALS: BP 168/97
[2023-06-03] MEDS ORDERED: Acetaminophen/Hydrocodone 5 MG/325 MG TABLET PO PRN ×2 (08:15→18:41)
[2023-06-03] MEDS ORDERED: HEPARIN SODIUM 10,000 UN/10 ML VIAL IV ONE (09:10)
[2023-06-03] MEDS ORDERED: SODIUM CHLORIDE 0.9% 1,000 ML BAG IV ONE (09:10)
[2023-06-03] MEDS ORDERED: HEPARIN SODIUM 10,000 UN/10 ML VIAL IV SCH (10:30)
[2023-06-03] MEDS ORDERED: SODIUM CHLORIDE 0.9% 1,000 ML IV SCH (10:30)
[2023-06-03] MEDS ORDERED: SODIUM CHLORIDE 23.4% 120 MEQ/30 ML VIAL IV SCH (10:30)
[2023-06-03] MEDS ORDERED: MANNITOL 12.5 GM/50 ML VIAL IV SCH (10:30)
[2023-06-03] MEDS ORDERED: HEPARIN SODIUM 5,000 UNIT/ML VIAL IV SCH (10:30)
[2023-06-03] MEDS ORDERED: ALBUMIN 25% 50 ML IV PRN (10:30)
[2023-06-03 12:00] VITALS: BP 133/68
[2023-06-03 14:30] VITALS: BP 162/92
[2023-06-03 20:00] VITALS: BP 138/79
[2023-06-04] VITALS: BP 161/96
[2023-06-04 04:20] LABS: BASO % 0.7 % (0.0-1.0); EOS # 0.1 10*3/uL (0.0-0.4); EOS % 1.6 % (1.0-4.0); HEMATOCRIT 31.6 % (42.0-52.0); LYMPH # 1.9 10*3/uL (1.3-4.4); MEAN CELL VOLUME 90.5 fl (80.0-94.0); MEAN CORPUSCULAR HGB 28.1 pg (27.0-31.0); MONO # 0.5 10*3/uL (0.1-1.0); NEUT # 2.1 10*3/uL (2.3-7.9); NEUT % 46.5 % (47.0-73.0); PLATELET COUNT AUTOMATED 280 10*3/uL (130-400); RED BLOOD COUNT 3.49 10*6/uL (4.50-5.90); RED CELL DISTRI WIDTH 13.7 % (0-14.5); WHITE BLOOD COUNT 4.5 10*3/uL (4.8-10.8)
[2023-06-04 04:41] LABS: POTASSIUM 5.4 mmol/L (3.4-5.1)
[2023-06-04 08:00] VITALS: BP 185/105
[2023-06-04] MEDS ORDERED: SODIUM CHLORIDE 0.9% 1,000 ML BAG IV ONE (10:03)
[2023-06-04 10:39] VITALS: BP 213/113
[2023-06-04] MEDS ORDERED: CALCIUM ACETAT667 M3 PO (15:14)
[2023-06-04] MEDS ORDERED: CALCITRIOL0.25 MCG PO (15:14)
[2023-06-04] MEDS ORDERED: VITAMIN D3125 MC1 PO (15:14)
[2023-06-04] MEDS ORDERED: LOSARTAN POTASS50 M1 PO (15:14)
[2023-06-04] MEDS ORDERED: BUMETANIDE1 MG PO (15:14)
[2023-06-04] MEDS ORDERED: ISORDIL10 M1 PO (15:14)
== END 2023-06-04 16:00 | disposition home or self-care (01) | DRG 199 ==
LOC: ED 11:33 → ICCU 15:21 → EDHOLD 15:21 → ICCU 19:46
PROVIDERS: Family Medicine; Internal Medicine; Internal Medicine Nephrology; Nurse Practitioner Family; ADMIT Family Medicine; ATTEND Family Medicine
PROC: 0JH63XZ Insertion of Tunneled Vascular Access Device into Chest Subcutaneous Tissue and Fascia, Percutaneous Approach (ICD-10-PCS; principal; 2023-06-03)
PROC: 02HV33Z Insertion of Infusion Device into Superior Vena Cava, Percutaneous Approach (ICD-10-PCS; 2023-06-03)
PROC: B548ZZA Ultrasonography of Superior Vena Cava, Guidance (ICD-10-PCS; 2023-06-03)
PROC: 5A1D70Z Performance of Urinary Filtration, Intermittent, Less than 6 Hours Per Day (ICD-10-PCS; 2023-06-03)
PROC: 5A1D70Z Performance of Urinary Filtration, Intermittent, Less than 6 Hours Per Day (ICD-10-PCS; 2023-06-04)
DX: I16.1 Hypertensive emergency (principal); E87.1 Hypo-osmolality and hyponatremia; E43 Unspecified severe protein-calorie malnutrition; N18.6 End stage renal disease; E66.9 Obesity, unspecified; E11.22 Type 2 diabetes mellitus with diabetic chronic kidney disease; E11.65 Type 2 diabetes mellitus with hyperglycemia; E78.2 Mixed hyperlipidemia; E11.40 Type 2 diabetes mellitus with diabetic neuropathy, unspecified; E87.8 Other disorders of electrolyte and fluid balance, not elsewhere classified; E87.5 Hyperkalemia; I51.7 Cardiomegaly; D64.9 Anemia, unspecified; G89.0 Central pain syndrome; E55.9 Vitamin D deficiency, unspecified; M89.8X8 Other specified disorders of bone, other site; F12.10 Cannabis abuse, uncomplicated; I12.0 Hypertensive chronic kidney disease with stage 5 chronic kidney disease or end stage renal disease; Z86.73 Personal history of transient ischemic attack (TIA), and cerebral infarction without residual deficits; Z71.6 Tobacco abuse counseling; Z79.899 Other long term (current) drug therapy; Z79.01 Long term (current) use of anticoagulants; Z79.2 Long term (current) use of antibiotics; Z99.2 Dependence on renal dialysis; Z91.09 Other allergy status, other than to drugs and biological substances; Z79.84 Long term (current) use of oral hypoglycemic drugs; Z68.32 Body mass index [BMI] 32.0-32.9, adult; Z87.891 Personal history of nicotine dependence; Z83.3 Family history of diabetes mellitus; Z82.49 Family history of ischemic heart disease and other diseases of the circulatory system

== ENCOUNTER → 2024-03-21 | Outpatient (CLI) | payer MEDICARE ==
[~2024-03-21] MED LIST changes: +BUMETANIDE1 MG PO; +CALCITRIOL0.25 MCG PO; +CALCIUM ACETAT667 M3 PO; +ISORDIL10 M1 PO; +VITAMIN D3125 MC1 PO
== END | disposition home or self-care (01) ==
LOC: US 10:44
PROVIDERS: ATTEND Internal Medicine Nephrology
DX: I70.291 Other atherosclerosis of native arteries of extremities, right leg (principal)

== ENCOUNTER → 2024-05-09 | Outpatient (CLI) | payer OTHER, MEDICAID ==
[~2024-05-09] MED LIST changes: +Iodixanol 320 100 ML VIAL IV ONE; +Iodixanol 320 100 ML VIAL ONE; +SODIUM CHLORIDE 0.9% 100 ML BAG IV ONE; +SODIUM CHLORIDE 0.9% 100 ML IV ONE
== END | disposition home or self-care (01) ==
LOC: LAB 10:32 → CT 11:00
PROVIDERS: ATTEND Internal Medicine Nephrology
DX: I70.203 Unspecified atherosclerosis of native arteries of extremities, bilateral legs (principal); K55.069 Acute infarction of intestine, part and extent unspecified; R79.89 Other specified abnormal findings of blood chemistry

== ENCOUNTER 2024-07-11 10:07 | Emergency (ER) | payer OTHER ==
[~2024-07-11] VITALS: Ht 170.1 cm; Wt 92.1 kg
[~2024-07-11 10:07] MED LIST changes: -Iodixanol 320 100 ML VIAL IV ONE; -Iodixanol 320 100 ML VIAL ONE; -SODIUM CHLORIDE 0.9% 100 ML BAG IV ONE; -SODIUM CHLORIDE 0.9% 100 ML IV ONE
[2024-07-11 10:15] VITALS: BP 196/88
[2024-07-11] MEDS ORDERED: PENICILLIN VK500 MG PO (11:17)
[2024-07-11] MEDS ORDERED: BENZOCAINE 20% 11.9 GM GEL T STA (11:20)
[2024-07-11] MEDS ORDERED: Lidocaine Hydrochloride 15 ML UDC PO STA (11:20)
[2024-07-11] MEDS ORDERED: PENICILLIN V POTASSIUM 500 MG TAB PO ONE (11:20)
== END 2024-07-11 11:47 | disposition home or self-care (01) ==
LOC: ED 10:07
DX: K02.9 Dental caries, unspecified (principal); K04.7 Periapical abscess without sinus; I10 Essential (primary) hypertension; E11.9 Type 2 diabetes mellitus without complications; I25.10 Atherosclerotic heart disease of native coronary artery without angina pectoris; Z79.4 Long term (current) use of insulin; Z79.899 Other long term (current) drug therapy; Z88.8 Allergy status to other drugs, medicaments and biological substances

== ENCOUNTER 2024-11-14 10:18 | Inpatient (IN) | payer OTHER ==
[~2024-11-14] VITALS: Ht 170.1 cm; Wt 83.0 kg
[~2024-11-14 10:18] MED LIST changes: +PENICILLIN VK500 MG PO
[2024-11-14 10:25] VITALS: BP 195/93
[2024-11-14] MEDS ORDERED: Albuterol Sulf/Ipratropium 3 ML VIAL NEB ONE (11:55)
[2024-11-14 12:25] LABS: BASO # 0.1 10*3/uL (0.0-0.1); BASO % 0.9 % (0.0-1.0); EOS # 0.1 10*3/uL (0.0-0.4); EOS % 1.4 % (1.0-4.0); MEAN CELL VOLUME 95.2 fl (80.0-94.0); MEAN CORPUSCULAR HGB 31.2 pg (27.0-31.0); MEAN PLATELET VOLUME 9.8 fl (9.6-12.3); MONO # 0.6 10*3/uL (0.1-1.0); MONO % 8.4 % (3.0-9.0); NEUT # 3.8 10*3/uL (2.3-7.9); NEUT % 57.7 % (47.0-73.0); NUCLEATED RED BLOOD CELL 0.0 % (0.0-0.0); NUCLEATED RED BLOOD CELL 0.0 10*3/uL (0.0-0.0); PLATELET COUNT AUTOMATED 247 10*3/uL (130-400); RED CELL DISTRI WIDTH 13.2 % (0-14.5)
[2024-11-14 12:47] LABS: BUN 7.0 mg/dl (9-23)
[2024-11-14] MEDS ORDERED: AZITHROMYCIN 250 ML IV ONE (13:35)
[2024-11-14] MEDS ORDERED: DEXTROSE 50% 25 GM/50 ML VIAL IV PRN (14:55)
[2024-11-14] MEDS ORDERED: BISACODYL 5 MG TAB PO PRN (14:55)
[2024-11-14] MEDS ORDERED: ACETAMINOPHEN 325 MG TAB PO PRN (14:55)
[2024-11-14] MEDS ORDERED: Ondansetron Hydrochloride 4 MG/2 ML VIAL IV PRN (14:55)
[2024-11-14] MEDS ORDERED: Albuterol Sulf/Ipratropium 3 ML VIAL NEB SCH (15:23)
[2024-11-14] MEDS ORDERED: INSULIN LISPRO 1 UNIT/0.01 ML SQ SCH (16:30)
[2024-11-14 16:55] VITALS: BP 126/78; BP 176/78
[2024-11-14 21:49] VITALS: BP 171/81
[2024-11-14] MEDS ORDERED: HEPARIN SODIUM 5,000 UNIT/ML VIAL SC SCH (22:00)
[2024-11-14] MEDS ORDERED: GUAIFENESIN 600 MG TAB ER PO SCH (22:00)
[2024-11-14] MEDS ORDERED: ISORDIL20 MG PO (22:20)
[2024-11-14] MEDS ORDERED: CLONIDINE0.3 MG PO (22:20)
[2024-11-14] MEDS ORDERED: ATORVASTATIN CA40 M1 PO (22:21)
[2024-11-14] MEDS ORDERED: NEPHRO VITAMIN0.8 MG PO (22:23)
[2024-11-14] MEDS ORDERED: HYDRALAZINE HYD50 MG PO (22:24)
[2024-11-14 23:49] VITALS: BP 166/82
[2024-11-15 06:25] LABS: FREE T4 1.34 ng/dl (0.89-1.76); LDL CHOLESTEROL 51.0 mg/dL (9-159); SGPT/ALT 27.0 U/L (5-49)
[2024-11-15 06:28] LABS: BUN 18.0 mg/dl (9-23)
[2024-11-15 06:42] VITALS: BP 169/110
[2024-11-15 06:45] LABS: VITAMIN D, 25-HYDROXY 54.0 ng/mL (30-100)
[2024-11-15 06:54] LABS: BASO # 0.0 10*3/uL (0.0-0.1); BASO % 0.1 % (0.0-1.0); EOS # 0.0 10*3/uL (0.0-0.4); EOS % 0.1 % (1.0-4.0); MEAN CELL VOLUME 92.7 fl (80.0-94.0); MEAN CORPUSCULAR HGB 31.2 pg (27.0-31.0); MEAN PLATELET VOLUME 10.6 fl (9.6-12.3); MONO # 0.2 10*3/uL (0.1-1.0); MONO % 2.1 % (3.0-9.0); NEUT # 7.8 10*3/uL (2.3-7.9); NEUT % 81.5 % (47.0-73.0); NUCLEATED RED BLOOD CELL 0.0 % (0.0-0.0); NUCLEATED RED BLOOD CELL 0.0 10*3/uL (0.0-0.0); PLATELET COUNT AUTOMATED 271 10*3/uL (130-400); RED CELL DISTRI WIDTH 13.1 % (0-14.5)
[2024-11-15 07:37] VITALS: BP 169/110
[2024-11-15] MEDS ORDERED: hydrALAZINE hydrochloride 50 MG TAB PO SCH (08:00)
[2024-11-15] MEDS ORDERED: CLONIDINE HYDROCHLORIDE 0.3 MG PO SCH (08:00)
[2024-11-15] MEDS ORDERED: ASPIRIN ENTERIC COATED 81 MG TAB PO SCH (10:00)
[2024-11-15] MEDS ORDERED: ISOSORBIDE DINITRATE 20 MG PO SCH (10:00)
[2024-11-15] MEDS ORDERED: ISOSORBIDE DINITRATE 10 MG TAB PO SCH (10:00)
[2024-11-15] MEDS ORDERED: CARVEDILOL 25 MG TAB PO SCH (10:00)
[2024-11-15] MEDS ORDERED: BUMETANIDE 1 MG TAB PO SCH (10:00)
[2024-11-15] MEDS ORDERED: Vitamin B Complex and Vitami4 1 TAB TAB PO SCH (10:00)
[2024-11-15 10:54] VITALS: BP 154/93
[2024-11-15] MEDS ORDERED: AZITHROMYCIN 250 ML IV SCH (13:00)
[2024-11-15 16:00] VITALS: BP 154/93
[2024-11-15 20:00] VITALS: BP 155/81
[2024-11-15] MEDS ORDERED: GABAPENTIN 300 MG CAP PO SCH (22:00)
[2024-11-15] MEDS ORDERED: ATORVASTATIN CALCIUM 40 MG TABLET PO SCH (22:00)
[2024-11-16] VITALS: BP 168/78
[2024-11-16] MEDS ORDERED: ALBUMIN 25% 50 ML IV PRN (07:25)
[2024-11-16] MEDS ORDERED: MANNITOL 12.5 GM/50 ML VIAL IV SCH (07:25)
[2024-11-16] MEDS ORDERED: HEPARIN SODIUM 10,000 UN/10 ML VIAL IV SCH (07:25)
[2024-11-16] MEDS ORDERED: SODIUM CHLORIDE 0.9% 1,000 ML IV SCH (07:25)
[2024-11-16] MEDS ORDERED: HEPARIN SODIUM 5,000 UNIT/ML VIAL IV SCH (07:25)
[2024-11-16] MEDS ORDERED: SODIUM CHLORIDE 23.4% 120 MEQ/30 ML VIAL IV SCH (07:25)
[2024-11-16 08:24] VITALS: BP 209/114
[2024-11-16] MEDS ORDERED: SODIUM CHLORIDE 0.9% 1,000 ML (CHILLED) IVB IV ONE (09:28)
[2024-11-16] MEDS ORDERED: CALCITRIOL 0.25 MCG CAP PO SCH (10:00)
[2024-11-16] MEDS ORDERED: NEURONTIN300 MG PO (12:20)
[2024-11-16] MEDS ORDERED: ASPIRIN ADULT L81 M2 PO (12:20)
[2024-11-16] MEDS ORDERED: ALBUTEROL2.5 MG/0.5 INH (12:21)
[2024-11-16] MEDS ORDERED: MUCUS RELIEF E600 MG PO (12:21)
[2024-11-16] MEDS ORDERED: CINACALCET HCL30 MG PO (12:21)
[2024-11-16] MEDS ORDERED: PREDNISONE10 MG PO (12:21)
[2024-11-16] MEDS ORDERED: VIBRA-TAB100 MG PO (12:21)
[2024-11-16] MEDS ORDERED: CALCITRIOL0.25 MCG PO (12:21)
[2024-11-16] MEDS ORDERED: hydrALAZINE hydrochloride 20 MG/ML VIAL IV ONE (12:35)
[2024-11-16 12:44] VITALS: BP 204/89
[2024-11-16 13:29] VITALS: BP 170/87
== END 2024-11-16 15:33 | disposition home or self-care (01) | DRG 196 ==
LOC: ED 10:18 → EDHOLD 13:36 → 4E 11-15 14:26
PROVIDERS: Nurse Practitioner Family; Registered Nurse; ADMIT Internal Medicine; ATTEND Internal Medicine
PROC: 5A1D70Z Performance of Urinary Filtration, Intermittent, Less than 6 Hours Per Day (ICD-10-PCS; principal; 2024-11-16)
DX: J84.114 Acute interstitial pneumonitis (principal); N18.6 End stage renal disease; J44.1 Chronic obstructive pulmonary disease with (acute) exacerbation; I12.0 Hypertensive chronic kidney disease with stage 5 chronic kidney disease or end stage renal disease; E87.6 Hypokalemia; D64.9 Anemia, unspecified; E11.22 Type 2 diabetes mellitus with diabetic chronic kidney disease; E78.2 Mixed hyperlipidemia; E11.40 Type 2 diabetes mellitus with diabetic neuropathy, unspecified; E66.9 Obesity, unspecified; F10.10 Alcohol abuse, uncomplicated; M89.8X8 Other specified disorders of bone, other site; Z87.891 Personal history of nicotine dependence; Z88.8 Allergy status to other drugs, medicaments and biological substances; Z79.899 Other long term (current) drug therapy; Z99.2 Dependence on renal dialysis; Z79.01 Long term (current) use of anticoagulants; Z79.2 Long term (current) use of antibiotics; Z79.4 Long term (current) use of insulin; Z86.73 Personal history of transient ischemic attack (TIA), and cerebral infarction without residual deficits; Z83.3 Family history of diabetes mellitus; Z82.49 Family history of ischemic heart disease and other diseases of the circulatory system; Z82.3 Family history of stroke; Y90.0 Blood alcohol level of less than 20 mg/100 ml; Z68.29 Body mass index [BMI] 29.0-29.9, adult

== ENCOUNTER → 2025-02-19 | Outpatient (CLI) | payer OTHER ==
[~2025-02-19] MED LIST changes: +ALBUTEROL2.5 MG/0.5 INH; +ATORVASTATIN CA40 M1 PO; +CINACALCET HCL30 MG PO; +CLONIDINE0.3 MG PO; +HYDRALAZINE HYD50 MG PO; +ISORDIL20 MG PO; +MUCUS RELIEF E600 MG PO; +NEPHRO VITAMIN0.8 MG PO; +PREDNISONE10 MG PO; +VIBRA-TAB100 MG PO
== END | disposition home or self-care (01) ==
LOC: WOUNDCARE 02:22
PROVIDERS: ATTEND Nurse Practitioner Family
DX: E11.622 Type 2 diabetes mellitus with other skin ulcer (principal); L97.811 Non-pressure chronic ulcer of other part of right lower leg limited to breakdown of skin; E11.22 Type 2 diabetes mellitus with diabetic chronic kidney disease; I12.9 Hypertensive chronic kidney disease with stage 1 through stage 4 chronic kidney disease, or unspecified chronic kidney disease; N18.9 Chronic kidney disease, unspecified; D64.9 Anemia, unspecified; I87.2 Venous insufficiency (chronic) (peripheral); Z99.2 Dependence on renal dialysis